=== PATIENT | female | born 1985 | race Two or more races ===

== ENCOUNTER 2024-05-21 20:59 | Emergency (ER) | payer SELFPAY ==
[~2024-05-21] VITALS: Ht 170.2 cm; Wt 73.1 kg
[2024-05-21 21:37] VITALS: PULSE 82; RESP 16; O2SAT 94
[2024-05-21 21:40] LABS: Basophils # (auto) 0 10 ^3/uL (0-0.2); Basophils % (auto) 0.5 % (0.0-2.0); Eosinophils # (auto) 0.1 10 ^3/uL (0-0.8); Eosinophils % (auto) 1.4 % (0.0-7.0); Hematocrit 41.8 % (36.0-46.0); Hemoglobin 14.1 g/dL (12.2-16.2); Lymphocytes # (auto) 2.2 10 ^3/uL (0.4-5.4); Lymphocytes % (auto) 35.8 % (10.0-50.0); Mean Corpuscular Hemoglobin 29.2 pg (28.0-32.0); Mean Corpuscular Hgb Conc. 33.7 g/dL (32.0-36.0); Mean Corpuscular Volume 86.5 fL (80.0-100.0); Monocytes # (auto) 0.4 10 ^3/uL (0-1.3); Monocytes % (auto) 6.4 % (0.0-12.0); Neutrophils # (auto) 3.4 10 ^3/uL (1.6-8.6); Neutrophils % (auto) 55.9 % (37.0-80.0); Platelet Count (auto) 327 10^3/uL (140-450); Red Blood Cells 4.83 10^6/uL (4.0-5.20); White Blood Cell 6.1 10^3/uL (4.4-10.8)
[2024-05-21 21:42] LABS: Chloride 101 mmol/L (98-107); Potassium 4.1 mmol/L (3.5-5.1); Sodium 130 mmol/L (136-145)
[2024-05-21 21:43] LABS: Anion Gap 8 (5-15); Calcium 9.7 mg/dL (8.7-10.4); Carbon Dioxide 21 mmol/L (20-31)
[2024-05-21 21:48] LABS: BUN/Creatinine Ratio 15.1 (10.0-20.0); Blood Urea Nitrogen 13 mg/dL (9-23)
[2024-05-21 21:53] LABS: Glucose 517 mg/dL (74-106)
[2024-05-21 22:00] VITALS: TEMP 98.4
[2024-05-21] MEDS: SODIUM CHLORIDE 0.9% 1,000 ML IV ONE (22:06)
[2024-05-21] MEDS: InsuLIN REG 1unit/0.01ml Soln (100units/ml) IV ONE (22:06)
[2024-05-21 22:34] LABS: Urine Bacteria None Seen /hpf (None Seen)
[2024-05-21 22:55] LABS: Urine Blood Negative /uL (Negative); Urine Budding Yeast OCCASIONAL /hpf (None Seen); Urine Clarity Clear (Clear); Urine Color Light-Yellow (Yellow); Urine Hyaline Cast FEW /lpf (0 - 2); Urine Protein, UAD Negative (Negative); Urine Specific Gravity 1.039 (1.001-1.035); Urine Urobilinogen Normal (Negative); Urine WBC 2 /hpf (0 - 5)
[2024-05-21] MEDS: FLUCONAZOLE 100 MG TAB PO ONE (23:15)
[2024-05-22] VITALS: BP 120/72; PULSE 76; RESP 22; O2SAT 96
== END 2024-05-22 00:56 | disposition home or self-care (01) ==
LOC: ER 20:59
DX: E11.65 Type 2 diabetes mellitus with hyperglycemia (principal); J45.909 Unspecified asthma, uncomplicated; Z98.890 Other specified postprocedural states
CPT/HCPCS: 36415; 80048; 81001; 85025; 96361; 96374; 99283; J1815; J7030

== ENCOUNTER 2024-06-18 16:45 | Emergency (ER) | payer SELFPAY ==
[~2024-06-18] VITALS: Ht 170.2 cm; Wt 73.3 kg
[2024-06-18 17:03] VITALS: BP 151/89; PULSE 80; RESP 16; O2SAT 97
[2024-06-18] MEDS ORDERED: ONDANSETRON HCL 4 MG/2 ML VIAL IV ONE (17:15)
[2024-06-18] MEDS ORDERED: InsuLIN REG 1unit/0.01ml Soln (100units/ml) IV ONE (17:15)
[2024-06-18] MEDS ORDERED: SODIUM CHLORIDE 0.9% 1,000 ML IV ONE ×2 (17:15→19:15)
[2024-06-18 17:25] LABS: Base Excess -0.4 mmol/L (-2.0-3.0)
--- NOTE | 2024-06-18 17:27 | ED.PDOC ---
GI ASSESSMENT HPI Comments DALILA Arreguin: Poor Historian. 39-year-old female with a history of diabetes presents to the emergency department for nonspecific left side abdominal pain with nausea and vomiting nonbilious nonbloody. Patient states she has been taking metformin and is supposed to be started on insulin but she has not picked it up yet. She checked her blood sugar at home today which was greater than 500. She decided to come here for evaluation. Temp: 98.5 F Heart rate: 80 RR: 16 BP: 151/89 02 sat: 97 % on room air PMH: DM 1, HLD PSH: CIARAN MAYER Social history: ENDORSES tobacco use, ENDORSES ETOH use, DENIES drug use Meds: UNKNOWN Allergies: DENIES REVIEW OF SYSTEMS: CONSTITUTIONAL: Denies acute: fever, diaphoresis, chills, HEAD: Denies acute: headache, photophobia Eyes: Denies acute: Double vision, vision loss, eye pain, eye discharge. EARS: Denies acute: tinnitus, hearing loss, ear discharge, ear pain, THROAT: Denies acute: sore throat, swelling, difficulty swallowing , pain with swallowing, change in voice. NECK: Denies acute: neck pain, neck swelling, stiff neck. HEART: Denies acute : chest pain, palpitations, LUNGS: Denies acute: SOB, wheezing, cough, hemoptysis ABDOMEN: Denies acute: diarrhea, melena , hematemesis, hematochezia SKIN: Denies acute: rash, redness, lesions, itchiness. EXTREMITIES: Denies acute: calf pain, numbness, tingling, weakness, denies pain in extremity. Denies acute: Low back pain. Neuro: Denies acute: focal neurological deficit, motor or sensory focal neurological deficit, tremors, seizure like activity, confusion, dizziness, change in mental status, loss of bowel or bladder function, cauda equina like symptoms. : Denies acute: dysuria, hematuria, flank pain, increase in urinary frequency. PSYCH: Denies acute: hallucination, suicidal ideation, homicidal ideation. FEMALE: Denies acute: abnormal vaginal bleeding, foul odor, unusual discharge. PHYSICAL EXAM: General: [id number] acute distress, awake and alert. Head: normocephalic, atraumatic. Neck: supple, trachea is midline, no swelling. Throat: Normal phonation. Eyes:, no erythema, no purulent discharge, no proptosis, no icterus. Heart: regular rate, regular rhythm, no significant murmur appreciated. Lungs: no apparent respiratory distress, Able to speak in full sentences. No wheezing, no rhonchi, no crackles. No stridors Clear to auscultation bilaterally. Abdomen: Suprapubic and left lower quadrant tender to palpation, non distended, soft, no guarding, no rebound, + bowel sounds. Neuro: Awake, Alert, oriented to name, self, situation, follows commands GCS=15. Speech is normal. Skin: no petechia, no purpura, no cyanosis, non-pale, not jaundice. Lower extremities: --no - Pitting edema no deformity, no focal swelling, no calf TTP. Makes eye contact. moves all four extremities. Face: no apparent facial droop. Ambulating in the ED independently. Chief Complaint: Hyperglycemia Time Seen by MD: 16:52 Primary Care Provider: OUT OF AREA Reviewed Notes: Nurses Notes, Medications, Allergies Allergies: Coded Allergies: NO KNOWN ALLERGIES (Unverified , 10/03/12) Home Meds No Active Prescriptions or Reported Meds Information Source: Patient Mode of Arrival: Ambulatory Brought in by: SELF Past Medical History PAST MEDICAL HISTORY: Asthma, DM, HTN COMPUTER TRAINING SPECIALIST History: No Pertinent COMPUTER TRAINING SPECIALIST History Family History Family History (Other): Fibromyalgia Social History Smoker: Other Alcohol: Occasionally Drugs: Denies Drug Use Lives In: Home Was a procedure done? Was a procedure done?: No GI differential Dx Differential Diagnosis: Other (DDX include Diverticulitis, colitis, gastroenteritis, acute abdomen, SBO, enteritis, constipation, volvulus, appendicitis, Gallbladder disease, choledocolithiasis, ascending cholangitis, pancreatitis, intraAbdominal mass/neoplasm, hepatitis, UTI, pylonephritis, kidney stone, aneurysm, dissection, Inflammatory bowel disease, gastroparesis, ischemic bowel, ovarian torsion, ovarian cyst/mass, tubo-ovarian abscess, , ectopic , PID, STD.) X-Ray, Labs, Meds, VS Vital Signs Date Time Temp Pulse Resp B/P (MAP) Pulse Ox O2 Delivery O2 Flow Rate FiO2 06/18/24 17:03 98.5 80 16 151/89 (109) 97 Lab Test 06/18/24 18:23 06/18/24 17:38 06/18/24 17:21 Range/Units Urine Color Colorless Yellow Urine Clarity Clear Clear Urine pH 5.5 5.0-9.0 Urine Specific [place] 1.040 H 1.001-1.035 Urine Protein Negative Negative Urine Ketones Negative Negative Urine Blood Negative Negative /uL Urine Nitrite Negative Negative Urine Bilirubin Negative Negative Urine Urobilinogen Normal Negative mg/dL Urine Leukocyte Esterase 2+ Negative /uL Urine RBC 18 0 - 4 /hpf Urine WBC 18 0 - 5 /hpf Urine Squamous Epithelial Cells Few <5 /hpf Urine Bacteria None seen None Seen /hpf Urine Glucose 4+ H Normal mg/dL Urine Opiates Screen Neg NEGATIVE Urine Fentanyl Screen Neg NEGATIVE Urine Barbiturates Screen Neg NEGATIVE Urine Phencyclidine Screen Neg NEGATIVE Urine Amphetamines Screen Neg NEGATIVE Urine Benzodiazepines Screen Neg NEGATIVE Urine Cocaine Screen Neg NEGATIVE Urine Cannabinoids Screen Neg NEGATIVE White Blood Count 6.0 4.4-10.8 10^3/uL Red Blood Count 4.77 4.0-5.20 10^6/uL Hemoglobin 14.4 12.2-16.2 g/dL Hematocrit 41.1 36.0-46.0 % Mean Corpuscular Volume 86.1 80.0-100.0 fL Mean Corpuscular Hemoglobin 30.3 28.0-32.0 pg Mean Corpuscular Hemoglobin Concent 35.2 32.0-36.0 g/dL Red Cell Distribution Width 13.2 11.8-14.3 % Platelet Count 305 140-450 10^3/uL Mean Platelet Volume 7.3 6.9-10.8 fL Neutrophils (%) (Auto) 64.6 37.0-80.0 % Lymphocytes (%) (Auto) 29.2 10.0-50.0 % Monocytes (%) (Auto) 4.6 0.0-12.0 % Eosinophils (%) (Auto) 1.2 0.0-7.0 % Basophils (%) (Auto) 0.4 0.0-2.0 % Neutrophils # (Auto) 3.9 1.6-8.6 10 ^3/uL Lymphocytes # (Auto) 1.7 0.4-5.4 10 ^3/uL Monocytes # (Auto) 0.3 0-1.3 10 ^3/uL Eosinophils # (Auto) 0.1 0-0.8 10 ^3/uL Basophils # (Auto) 0 0-0.2 10 ^3/uL Nucleated Red Blood Cells 0.5 % D-Dimer, Quantitative < 0.19 0.0-0.49 mg/L FEU Sodium Level 133 L 136-145 mmol/L Potassium Level 4.2 3.5-5.1 mmol/L Chloride Level 99 98-107 mmol/L Carbon Dioxide Level 27 20-31 mmol/L Anion Gap 7 5-15 Blood Urea Nitrogen 13 9-23 mg/dL Creatinine 0.81 0.550-1.02 mg/dL Glomerular Filtration Rate Calc 94 >90 mL/min BUN/Creatinine Ratio 16.0 10.0-20.0 Serum Glucose 418 *H 74-106 mg/dL Lactic Acid Level 1.5 0.4-2.0 mmol/L Calcium Level 9.5 8.7-10.4 mg/dL Magnesium Level 1.9 1.6-2.6 mg/dL Total Bilirubin 0.3 0.2-1.0 mg/dL Aspartate Amino Transferase (AST) < 8 L 13-40 U/L Alanine Aminotransferase (ALT) 23 7-40 U/L Alkaline Phosphatase 90 46-116 U/L Troponin I High Sensitivity < 3 L </=34 ng/L Total Protein 6.8 5.7-8.2 g/dL Albumin 4.5 3.2-4.8 g/dL Lipase 48 12-53 U/L Beta-Hydroxybutyric Acid 0.163 < 0.4 mmol/L Beta HCG, Quantitative 0.0 L 1.5-4.2 mIU/mL Blood Gas Specimen Type Arterial Blood Gas Sample Site Right radial Blood Gas Patient Temperature 37.0 Arterial Blood Date Drawn [id number] Arterial Blood pH 7.408 7.350-7.450 Arterial Blood Partial Pressure CO2 39.0 32.0-45.0 mmHg Arterial Blood Partial Pressure O2 72.0 L 83.0-108.0 mmHg Arterial Blood HCO3 24.1 21.0-28.0 mmol/L Arterial Blood Oxygen Saturation 95.0 94.0-98.0 % Arterial Blood Base Excess -0.4 -2.0-3.0 mmol/L Arterial Blood Oxyhemoglobin 93.7 L 94.0-98.0 % Arterial Blood Carboxyhemoglobin 0.8 0.5-1.5 % Arterial Blood Methemoglobin 0.6 0.0-1.5 % Man Test Positive Blood Gas Total Hemoglobin 14.20 12.0-16.0 g/dL Blood Gas Liter Flow 0.00 Blood Gas Modality Room air FiO2 % 21.[address] [address] Ph: [phone] DIAGNOSTIC IMAGING Diagnostic Imaging Report : [id number] Signed PATIENT: MERLIN MIX ACCT: [id number] UNIT: [id number] : 1985 LOC: ER ROOM / BED: / AGE / SEX: 39 / F ADM STATUS: REG ER SERVICE 08 ORDERING PHYSICIAN: SALEEM LAZCANO DO PROCEDURE(s): CXRP - CHEST PORTABLE REASON: L abd pain ORDER NUMBER(s): [id number], ACCESSION NUMBER(s): [id number] EXAM: XY CHEST PORTABLE CLINICAL HISTORY: L abd pain TECHNIQUE: Single AP view of the chest WID: COMPARISON: None FINDINGS: Lines and tubes: None Chest: The heart size and pulmonary vasculature is within normal limits. No pleural effusion, pneumothorax, or consolidation. The osseous structures are grossly intact. IMPRESSION: No acute cardiopulmonary abnormality. ATED BY: RADHA SALTER MD DICTATED DATE/TIME: 06/18/242010 SIGNED BY: RADHA SALTER MD SIGNED DATE/TIME: 06/18/242010 CC: [address] [id number] Ph: [phone] DIAGNOSTIC IMAGING Diagnostic Imaging Report : [id number] Signed PATIENT: MERLIN IMX ACCT: [id number] UNIT: [id number] : 1985 LOC: ER ROOM / BED: / AGE / SEX: 39 / F ADM STATUS: REG ER SERVICE 08 ORDERING PHYSICIAN: SALEEM LAZCANO DO PROCEDURE(s): ABPL - CT AB PEL WO CON-NO ORAL OR IV REASON: L abd pain ORDER NUMBER(s): [id number], ACCESSION NUMBER(s): [id number] Exam: CT CT AB PEL WO CON-NO ORAL OR IV History: L abd pain Comparison Study: None available at time of dictation. TECHNIQUE: Multidetector CT of the abdomen was performed from lung bases to pubic symphysis. Imaging was performed without IV contrast. Axial, coronal and sagittal multiplanar reformats were obtained from the axial data set by the technologist. Radiation Dose Information: CT Dose: CTDI volume is 8.82 mGy. Dose-length product is 489.88 mGy*cm FINDINGS: Evaluation of solid organs is limited due to lack of intravenous contrast use. Findings: Lung Bases: No acute or significant lung base finding. Normal heart size. No pleural or pericardial effusion. Liver: The liver is normal in size. No focal lesions. Gallbladder and Biliary Tree: Unremarkable Spleen: Unremarkable Pancreas: The pancreas is grossly normal in appearance. Adrenal Glands: Unremarkable Kidneys: Kidneys are grossly normal without calculi or hydronephrosis. Bladder: Grossly unremarkable for degree of distention. Bowel: The stomach is grossly normal in appearance. Small bowel and colon are normal in caliber and distribution. Stool throughout the The appendix is not visualized; however, no secondary findings of acute appendicitis identified. Ascites: Absent Lymphadenopathy: No mesenteric, retroperitoneal or periportal lymphadenopathy. Abdominal Wall and Mesentery: Unremarkable. Vasculature: The visualized abdominal aorta is normal in size and caliber. Evaluation of abdominal and pelvic vessels is limited due to lack of intravenous contrast. Pelvic Organs: Unremarkable Musculoskeletal: No aggressive focal bony lesions, acute fractures or dislocation. Soft tissues: Unremarkable IMPRESSION: 1. Gallbladder is contracted. No calcified gallstones are seen. 2. There is no nephrolithiasis or hydronephrosis. 3. There are no CT findings to suggest bowel obstruction however there is a large stool burden throughout the colon. 4. There is no free air or free fluid. Radiation optimization: All CT scans at this facility use at least one of these dose optimization techniques: automated exposure control mA and/or kV adjustment per patient size (includes targeted exams where dose is matched to clinical indication) or iterative reconstruction. ATED BY: CT MARTINEZ Jr., DO DICTATED DATE/TIME: 06/18/242013 SIGNED BY: CT MARTINEZ Jr., SIGNED DATE/TIME: 06/18/242013 CC: Time of 1ST Reevaluation: 23:00 Reevaluation 1ST: N/A Patient Education/Counseling: Diagnosis, Treatment Family Education/Counseling: No Family Present Comments Patient presented with the above HPI.--hyperglycemia and abdominal pain----workup was initiated. patient was found with the above mentioned diagnosis. Patient was given: Fluids and insulin and Zofran Patient ED course and VS have been stabilized. Patient has been reassessed in the ED and remained in a stable condition. Patient has been observed in the ED adequate length of time to insure improvement/stability. patient was admitted to the medicine team for further evaluation and treatment of their presentation. However I was notified that the patient eloped. All the reports of any imaging studies that were ordered by myself were reviewed by myself. Departure 1 Departure Time of Disposition: 19:46 Impression: Primary Impression: Hyperglycemia Additional Impressions: Hypoxemia Abdominal pain Eloped from emergency department Disposition: 07 LEFT AWOL/ELOPED Admit to: Tele Condition: Guarded e-Prescriptions No Active Prescriptions or Reported Meds Discharged With: Self Critical Care Note Critical Care Time?: No I personally scribed for SALEEM LAZCANO DO ([email or web address]) on 06/18/24 at 17:27. Electronically submitted by Sandrine Aparicio ([employer]). I personally scribed for SALEEM LAZCANO DO ([email or web address]) on 06/18/24 at 17:55. Electronically submitted by Sandrine Aparicio ([employer]). I personally scribed for SALEEM LAZCANO DO ([email or web address]) on 06/18/24 at 21:05. Electronically submitted by Sandrine Aparicio ([employer]). SALEEM LAZCANO DO Jun 18, 2024 17:27
[2024-06-18 18:04] LABS: Basophils # (auto) 0 10 ^3/uL (0-0.2); Basophils % (auto) 0.4 % (0.0-2.0); Eosinophils # (auto) 0.1 10 ^3/uL (0-0.8); Eosinophils % (auto) 1.2 % (0.0-7.0); Hematocrit 41.1 % (36.0-46.0); Hemoglobin 14.4 g/dL (12.2-16.2); Lymphocytes # (auto) 1.7 10 ^3/uL (0.4-5.4); Lymphocytes % (auto) 29.2 % (10.0-50.0); Mean Corpuscular Hemoglobin 30.3 pg (28.0-32.0); Mean Corpuscular Hgb Conc. 35.2 g/dL (32.0-36.0); Mean Corpuscular Volume 86.1 fL (80.0-100.0); Monocytes # (auto) 0.3 10 ^3/uL (0-1.3); Monocytes % (auto) 4.6 % (0.0-12.0); Neutrophils # (auto) 3.9 10 ^3/uL (1.6-8.6); Neutrophils % (auto) 64.6 % (37.0-80.0); Nucleated Red Blood Cells % 0.5 %; Platelet Count (auto) 305 10^3/uL (140-450); Red Blood Cells 4.77 10^6/uL (4.0-5.20); Red Cell Distribution Width 13.2 % (11.8-14.3)
[2024-06-18 18:25] LABS: Urine Bacteria None Seen /hpf (None Seen)
[2024-06-18 18:26] LABS: Alanine Aminotransferase 23 U/L (7-40); Albumin 4.5 g/dL (3.2-4.8); Alkaline Phosphatase 90 U/L (46-116); Anion Gap 7 (5-15); Aspartate Aminotransferase < 8 U/L (13-40); Bilirubin, Total 0.3 mg/dL (0.2-1.0); Blood Urea Nitrogen 13 mg/dL (9-23); Calcium 9.5 mg/dL (8.7-10.4); Carbon Dioxide 27 mmol/L (20-31); Chloride 99 mmol/L (98-107); Lipase 48 U/L (12-53); Magnesium 1.9 mg/dL (1.6-2.6); Potassium 4.2 mmol/L (3.5-5.1); Sodium 133 mmol/L (136-145); Total Protein 6.8 g/dL (5.7-8.2)
[2024-06-18 18:36] LABS: Glucose 418 mg/dL (74-106)
[2024-06-18 18:45] LABS: Urine Blood Negative /uL (Negative); Urine Clarity Clear (Clear); Urine Color Colorless (Yellow); Urine Protein, UAD Negative (Negative); Urine Urobilinogen Normal (Negative); Urine WBC 18 /hpf (0 - 5); Urine pH 5.5 (5.0-9.0)
[2024-06-18 18:47] LABS: Amphetamine Screen, Urine Neg (NEGATIVE); Barbiturate Scree,Urine Neg (NEGATIVE); Benzodiazephine Screen, Urine Neg (NEGATIVE); Cocaine Screen, Urine Neg (NEGATIVE); Opiate Scree,Urine Neg (NEGATIVE)
[2024-06-18 18:48] LABS: Cannabinoid Screen, Urine Neg (NEGATIVE); Phencyclidine Screen, Urine Neg (NEGATIVE)
--- NOTE | 2024-06-18 20:14 | DVH ---
EXAM: XY CHEST PORTABLE CLINICAL HISTORY: L abd pain TECHNIQUE: Single AP view of the chest WID: COMPARISON: None FINDINGS: Lines and tubes: None Chest: The heart size and pulmonary vasculature is within normal limits. No pleural effusion, pneumothorax, or consolidation. The osseous structures are grossly intact. IMPRESSION: No acute cardiopulmonary abnormality.
--- NOTE | 2024-06-18 20:17 | DVH ---
Exam: CT CT AB PEL WO CON-NO ORAL OR IV History: L abd pain Comparison Study: None available at time of dictation. TECHNIQUE: Multidetector CT of the abdomen was performed from lung bases to pubic symphysis. Imaging was performed without IV contrast. Axial, coronal and sagittal multiplanar reformats were obtained fr om the axial data set by the technologist. Radiation Dose Information: CT Dose: CTDI volume is 8.82 mGy. Dose-length product is 489.88 mGy*cm FINDINGS: Evaluation of solid organs is limited due to lack of intravenous contrast use. Findings: Lung Bases: No acute or significant lung base finding. Normal heart size. No pleural or pericardial effusion. Liver: The liver is normal in size. No focal lesions. Gallbladder and Biliary Tree: Unremarkable Spleen: Unremarkable Pancreas: The pancreas is grossly normal in appearance. Adrenal Glands: Unremarkable Kidneys: Kidneys are grossly normal without calculi or hydronephrosis. Bladder: Grossly unremarkable for degree of distention. Bowel: The stomach is grossly normal in appearance. Small bowel and colon are normal in caliber and d istribution. Stool throughout the The appendix is not visualized; however, no secondary findings of acute appendicitis identified. Ascites: Absent Lymphadenopathy: No mesenteric, retroperitoneal or periportal lymphadenopathy. Abdominal Wall and Mesentery: Unremarkable. Vasculature: The visualized abdominal aorta is normal in size and caliber. Evaluation of abdominal a nd pelvic vessels is limited due to lack of intravenous contrast. Pelvic Organs: Unremarkable Musculoskeletal: No aggressive focal bony lesions, acute fractures or dislocation. Soft tissues: Unremarkable IMPRESSION: 1. Gallbladder is contracted. No calcified gallstones are seen. 2. There is no nephrolithiasis or hydronephrosis. 3. There are no CT findings to suggest bowel obstruction however there is a large stool burden throug hout the colon. 4. There is no free air or free fluid. Radiation optimization: All CT scans at this facility use at least one of these dose optimization travis hniques: automated exposure control mA and/or kV adjustment per patient size (includes targeted exam s where dose is matched to clinical indication) or iterative reconstruction.
== END 2024-06-18 21:11 | disposition left against medical advice (07) ==
LOC: ER 16:45
DX: E11.65 Type 2 diabetes mellitus with hyperglycemia (principal); R10.2 Pelvic and perineal pain; R09.02 Hypoxemia; R10.9 Unspecified abdominal pain; J45.909 Unspecified asthma, uncomplicated; I10 Essential (primary) hypertension; E78.5 Hyperlipidemia, unspecified; F17.200 Nicotine dependence, unspecified, uncomplicated; Z79.899 Other long term (current) drug therapy
CPT/HCPCS: 36415; 36600; 71045; 74176; 80053; 80307; 81001; 82010; 82805; 83605; 83690; 83735; 84484; 84702; 85025; 85379

== ENCOUNTER 2024-10-14 02:20 | Emergency (ER) | payer MEDICAID ==
[~2024-10-14] VITALS: Ht 170.2 cm; Wt 73.0 kg
[2024-10-14] MEDS: SODIUM CHLORIDE 0.9% 1,000 ML IV ONE ×2 (03:09→05:23)
[2024-10-14] MEDS: ASPirin 81 mg TAB PO ONE (03:10)
[2024-10-14] MEDS: hydrALAZINE HCL 20 MG/ML VL IV ONE (03:10)
[2024-10-14 03:11] LABS: Basophils # (auto) 0 10 ^3/uL (0-0.2); Basophils % (auto) 0.4 % (0.0-2.0); Eosinophils # (auto) 0 10 ^3/uL (0-0.8); Eosinophils % (auto) 0.5 % (0.0-7.0); Hematocrit 39.1 % (36.0-46.0); Hemoglobin 13.6 g/dL (12.2-16.2); Lymphocytes # (auto) 1.6 10 ^3/uL (0.4-5.4); Lymphocytes % (auto) 35.3 % (10.0-50.0); Mean Corpuscular Hemoglobin 29.6 pg (28.0-32.0); Mean Corpuscular Hgb Conc. 34.7 g/dL (32.0-36.0); Mean Corpuscular Volume 85.4 fL (80.0-100.0); Monocytes # (auto) 0.5 10 ^3/uL (0-1.3); Monocytes % (auto) 10.2 % (0.0-12.0); Neutrophils # (auto) 2.5 10 ^3/uL (1.6-8.6); Neutrophils % (auto) 53.6 % (37.0-80.0); Nucleated Red Blood Cells % 0.2 %; Platelet Count (auto) 233 10^3/uL (140-450); Red Blood Cells 4.58 10^6/uL (4.0-5.20); Red Cell Distribution Width 13.5 % (11.8-14.3); White Blood Cell 4.6 10^3/uL (4.4-10.8)
[2024-10-14 03:12] LABS: Base Excess -1.1 mmol/L (-2.0-3.0)
[2024-10-14 03:21] LABS: Albumin 4.6 g/dL (3.2-4.8); Alkaline Phosphatase 82 U/L (46-116); Anion Gap 10 (5-15); BUN/Creatinine Ratio 10.9 (10.0-20.0); Blood Urea Nitrogen 10 mg/dL (9-23); Calcium 9.6 mg/dL (8.7-10.4); Carbon Dioxide 25 mmol/L (20-31); Magnesium 1.8 mg/dL (1.6-2.6); Total Protein 7.1 g/dL (5.7-8.2)
--- NOTE | 2024-10-14 03:28 | ECG ---
[facility] Test Date: 2024-10-14 Test Time: 03:27:03 Pat Name: MERLIN MIX Department: ED Room: Gender: F Concrete Floater: ADOLFO : 1985 Requested By: EMERGENCY EMERGENCY Order Number: [id number] Reading MD: Measurements Intervals [place] Rate: 94 P: 50 IN: 129 QRS: 53 QRSD: 85 T: 40 QT: 358 QTc: 448 Interpretive Statements Sinus rhythm Probable anteroseptal infarct, old Please click the below link to view image of tracing.
[2024-10-14 03:42] LABS: Alanine Aminotransferase 71 U/L (7-40); Aspartate Aminotransferase 43 U/L (13-40); Bilirubin, Total 0.3 mg/dL (0.2-1.0); Chloride 98 mmol/L (98-107); Glucose 430 mg/dL (74-106); Sodium 133 mmol/L (136-145)
[2024-10-14 03:45] LABS: Urine Bacteria None Seen /hpf (None Seen)
[2024-10-14 04:04] VITALS: PULSE 104; RESP 14; O2SAT 98
[2024-10-14] MEDS: ACETAMINOPHEN 325 MG TAB PO ONE (04:12)
[2024-10-14] MEDS: KETOROLAC TROMETH 30 MG/ML 1ML VIAL IV ONE (04:12)
[2024-10-14 04:30] LABS: Urine Blood Negative /uL (Negative); Urine Clarity Clear (Clear); Urine Color Colorless (Yellow); Urine Protein, UAD Negative (Negative); Urine Squamous Epithelial Cell FEW /hpf (<5); Urine Urobilinogen Normal (Negative); Urine WBC 7 /HPF (0-5); Urine pH 5.5 (5.0-9.0)
--- NOTE | 2024-10-14 04:49 | ED.PDOC ---
History of Present Illness HPI Comments [id number]-female, with a history of asthma, DMI, fibromyalgia, HLD, HTN, and polysubstance use, presents with c/o hyperglycemia, with associated generalized weakness, dizziness, headache, chest pain, nausea, and diarrhea, today. Patient endorses onset of symptoms, this morning, after dealing with a fever that has been ongoing for the past 2x days. She reports a chronological blood glucose measurements of 428, 290, 385, and 497 at home after multiple rechecks at home prior to ED arrival, with endorsement of water consumption use in attempt to counter rising blood glucose levels to minimal effect. Patient comments on daily insulin-pen use. She describes pain as tight in quality. Patient denies any shortness of breath, abdominal pain, vomiting, chills, or other associated symptoms or modifiers at this time. Chief Complaint: Palpitations Time Seen by MD: 02:40 Primary Care Provider: OUT OF AREA Reviewed Notes: Nurses Notes, Medications, Allergies Allergies: Coded Allergies: NO KNOWN ALLERGIES (Unverified , 10/03/12) Home Meds No Active Prescriptions or Reported Meds Information Source: Patient Mode of Arrival: Wheelchair Severity: Moderate Timing: Hours Duration: Since onset Prehospital treatment: None Review of Systems: REVIEW OF SYSTEMS: Fever, no chills, or fatigue HEENT: No sore throat, no earache, no congestion, no neck pain. Cardiac: Chest pain. No palpitations. Lungs: No shortness of breath, no cough. GI: Nausea and diarrhea, no vomiting, no constipation, no abdominal pain : No dysuria, frequency, or urgency. No hematuria. Musculoskeletal: No joint pain , no joint swelling, no extremity edema. Skin: No rash, no itching. Neuro: Headache, dizziness, and weakness Vital Signs Vital Signs Date Time Temp Pulse Resp B/P (MAP) Pulse Ox O2 Delivery O2 Flow Rate FiO2 10/14/24 05:12 99.3 10/14/24 04:49 94 10/14/24 04:04 14 98 Room Air* 0 21 10/14/24 03:59 143/102 (116) Physical Exam General: Awake, alert and oriented. No acute distress. Skin: Skin in warm, dry and intact. Appropriate color for ethnicity. HEENT: The head is normocephalic and atraumatic. Conjunctivae are clear without exudates or hemorrhage. Sclera is non-icteric. EOM are intact. No signs of nystagmus. Eyelids are normal in appearance without swelling or lesions. Oral mucosa is pink and moist Neck: The neck is supple with normal range of motion. No JVD. Cardiac: Heart rate and rhythm are normal. No murmurs, gallops, or rubs are auscultated. Respiratory: No signs of respiratory distress. Lung sounds are clear in all lobes bilaterally without rales, ronchi, or wheezes. Abdominal: Abdomen is soft, non-tender without distention. Bowel sounds are present and normoactive in all four quadrants. Extremities: Upper and lower extremities are atraumatic in appearance without deformity or edema. Neurological: The patient is awake, alert and oriented to person, place, and time with normal speech. Speech is clear. There is no facial asymmetry. Psychiatric: Appropriate mood and affect. Good judgement and insight. No visual or auditory hallucinations. Past Medical History PAST MEDICAL HISTORY: Asthma, DM (Type 1), High Lipids, HTN Past Medical History (Other): Fibromyalgia Surgical History (Other): Tummy tuck USER ACCEPTANCE TESTER History: No Pertinent USER ACCEPTANCE TESTER History Family History Family History (Other): Fibromyalgia Social History Smoker: Cigarettes Alcohol: Occasionally Drugs: Denies Drug Use Lives In: Home Was a procedure done? Was a procedure done?: No EKG EKG #1: Pulse Rate (adult): 100 Cardiac Rhythm: NSR, PAC's Block: None Hypertrophy: None ST: Normal EKG #2: Pulse Rate (adult): 94 [place]: Normal Cardiac Rhythm: NSR Block: None Hypertrophy: None ST: Normal Differential Dx Considerations may include: hyperglycemia, DKA, acute ischemic coronary syndrome, aortic dissection, cardiac tamponade, mediastinitis, pulmonary embolus, pneumothorax, tension pneumothorax, esophageal rupture, coronary artery vasospasm, myocarditis, pericarditis, pneumonia, pulmonary edema, esophageal tear, pancreatitis, aortic stenosis, dilated cardiomyopathy, hypertrophic cardiomyopathy, mitral valve prolapse, malignancy, pleuritis, pneumomediastinum, primary pulmonary hypertension, cholecystitis, esophageal spasm, esophagus, gastritis, GERD, peptic ulcer disease, costochondritis, fibromyalgia, rib fracture, herpes zoster, radicular syndromes, thoracic outlet syndrome, somatization X-Ray, Labs, Meds, VS Vital Signs Date Time Temp Pulse Resp B/P (MAP) Pulse Ox O2 Delivery O2 Flow Rate FiO2 10/14/24 05:12 99.3 10/14/24 04:49 94 10/14/24 04:12 101.1 10/14/24 04:04 104 14 98 Room Air* 0 21 10/14/24 03:59 100.1 102 24 143/102 (116) 98 100.1 10/14/24 03:27 94 10/14/24 03:10 155/110 10/14/24 02:41 99.9 105 20 155/110 (125) 97 10/14/24 02:38 100 Lab Test 10/14/24 05:21 10/14/24 04:17 10/14/24 03:18 10/14/24 03:15 Range/Units POC Glucose 337 H 70-106 mg/dl Influenza Type A Antigen Negative Negative Influenza Type B Antigen Positive Negative SARS-CoV-2 Antigen (Rapid) Negative NEGATIVE Urine Color Colorless Yellow Urine Clarity Clear Clear Urine pH 5.5 5.0-9.0 Urine Specific [place] 1.030 1.001-1.035 Urine Protein Negative Negative Urine Ketones Negative Negative Urine Blood Negative Negative /uL Urine Nitrite Negative Negative Urine Bilirubin Negative Negative Urine Urobilinogen Normal Negative mg/dL Urine Leukocyte Esterase Negative Negative /uL Urine RBC 4 0 - 4 /hpf Urine Microscopic WBC 7 H 0-5 /HPF Urine Squamous Epithelial Cells Few <5 /hpf Urine Bacteria None seen None Seen /hpf Urine Glucose 4+ H Normal mg/dL Urine Test Negative Negative Magnesium Level Pending Troponin I High Sensitivity 3 L </=34 ng/L Lipase Pending Test 10/14/24 03:02 10/14/24 02:45 10/14/24 02:43 10/14/24 02:30 Range/Units Blood Gas Specimen Type Arterial Blood Gas Sample Site Right radial Blood Gas Patient Temperature 37.0 Arterial Blood Date Drawn [id number] Arterial Blood pH 7.441 7.350-7.450 Arterial Blood Partial Pressure CO2 33.4 32.0-45.0 mmHg Arterial Blood Partial Pressure O2 84.1 83.0-108.0 mmHg Arterial Blood HCO3 22.2 21.0-28.0 mmol/L Arterial Blood Oxygen Saturation 96.5 94.0-98.0 % Arterial Blood Base Excess -1.1 -2.0-3.0 mmol/L Arterial Blood Oxyhemoglobin 95.2 94.0-98.0 % Arterial Blood Carboxyhemoglobin 0.8 0.5-1.5 % Arterial Blood Methemoglobin 0.5 0.0-1.5 % Man Test Modified Blood Gas Total Hemoglobin 14.10 12.0-16.0 g/dL Blood Gas Modality Room air FiO2 % 21.0 POC Glucose 425 *H 412 *H 70-106 mg/dl White Blood Count 4.6 4.4-10.8 10^3/uL Red Blood Count 4.58 4.0-5.20 10^6/uL Hemoglobin 13.6 12.2-16.2 g/dL Hematocrit 39.1 36.0-46.0 % Mean Corpuscular Volume 85.4 80.0-100.0 fL Mean Corpuscular Hemoglobin 29.6 28.0-32.0 pg Mean Corpuscular Hemoglobin Concent 34.7 32.0-36.0 g/dL Red Cell Distribution Width 13.5 11.8-14.3 % Platelet Count 233 140-450 10^3/uL Mean Platelet Volume 7.5 6.9-10.8 fL Neutrophils (%) (Auto) 53.6 37.0-80.0 % Lymphocytes (%) (Auto) 35.3 10.0-50.0 % Monocytes (%) (Auto) 10.2 0.0-12.0 % Eosinophils (%) (Auto) 0.5 0.0-7.0 % Basophils (%) (Auto) 0.4 0.0-2.0 % Neutrophils # (Auto) 2.5 1.6-8.6 10 ^3/uL Lymphocytes # (Auto) 1.6 0.4-5.4 10 ^3/uL Monocytes # (Auto) 0.5 0-1.3 10 ^3/uL Eosinophils # (Auto) 0 0-0.8 10 ^3/uL Basophils # (Auto) 0 0-0.2 10 ^3/uL Nucleated Red Blood Cells 0.2 % Sodium Level 133 L 136-145 mmol/L Potassium Level 4.0 3.5-5.1 mmol/L Chloride Level 98 98-107 mmol/L Carbon Dioxide Level 25 20-31 mmol/L Anion Gap 10 5-15 Blood Urea Nitrogen 10 9-23 mg/dL Creatinine 0.92 0.550-1.02 mg/dL Glomerular Filtration Rate Calc 81 >90 mL/min BUN/Creatinine Ratio 10.9 10.0-20.0 Serum Glucose 430 *H 74-106 mg/dL Calcium Level 9.6 8.7-10.4 mg/dL Magnesium Level 1.8 1.6-2.6 mg/dL Total Bilirubin 0.3 0.2-1.0 mg/dL Aspartate Amino Transferase (AST) 43 H 13-40 U/L Alanine Aminotransferase (ALT) 71 H 7-40 U/L Alkaline Phosphatase 82 46-116 U/L Troponin I High Sensitivity 3 L </=34 ng/L B-Type Natriuretic Peptide 15.19 0-100 pg/mL Total Protein 7.1 5.7-8.2 g/dL Albumin 4.6 3.2-4.8 g/dL Beta-Hydroxybutyric Acid 0.155 < 0.4 mmol/L Current Medications Medications (Trade) Dose Ordered Sig/Tamy Route Start Time Stop Time Status Last Admin Sodium Chloride 1,000 ml @ 1,000 mls/hr Q1H ONCE IV 10/14/24 03:00 10/14/24 03:59 DC 10/14/24 03:09 Aspirin 324 mg ONCE ONCE PO 10/14/24 03:00 10/14/24 03:01 DC 10/14/24 03:10 Hydralazine HCl (Apresoline Injection) 10 mg ONCE ONCE IV 10/14/24 03:00 10/14/24 03:01 DC 10/14/24 03:10 Acetaminophen (Tylenol Tablet) 650 mg ONCE ONCE PO 10/14/24 04:15 10/14/24 04:16 DC 10/14/24 04:12 Ketorolac Tromethamine (Toradol Injection) 15 mg ONCE ONCE IV 10/14/24 04:15 10/14/24 04:16 DC 10/14/24 04:12 Insulin Human Regular (InsuLIN R) 7 units ONCE ONCE IV 10/14/24 05:15 10/14/24 05:16 DC 10/14/24 05:21 Potassium Bicarbonate (Klor-Con/Ef) 25 meq ONCE ONCE PO 10/14/24 05:15 10/14/24 05:16 DC 10/14/24 05:20 Sodium Chloride 1,000 ml @ 1,000 mls/hr Q1H ONCE IV 10/14/24 05:15 10/14/24 06:14 10/14/24 05:23 Oseltamivir Phosphate (Tamiflu 75MG Capsule) 75 mg ONCE ONCE PO 10/14/24 05:30 10/14/24 05:31 DC 10/14/24 05:26 Time of 1ST Reevaluation: 03:10 Reevaluation 1ST: Unchanged Patient Education/Counseling: Treatment, Need For Follow Up Family Education/Counseling: No Family Present Departure 1 Departure Time of Disposition: 05:53 Impression: Primary Impression: Hyperglycemia Additional Impression: Influenza B Disposition: 01 HOME / SELF CARE / HOMELESS Condition: Stable Additional Instructions: ED DISCHARGE INSTRUCTIONS Instructions: Please read all instructions provided in this packet carefully. Although you have been discharged from the Emergency Department, this does not mean that you have a "clean bill of health". No definitive diagnosis for your symptoms has been made today. It is possible that you are in the process of developing a serious illness. This is why you must return to the ED without fail if any new or worsening symptoms (especially if your symptoms include chest pain, trouble breathing, abdominal pain, fever, headache, confusion, trouble seeing, or trouble walking) It is also very important that you see a primary care doctor within the next 3-5 days to follow up. If you are unable to get an appointment, return to the ED for re-evaluation. Diabetes: Preventing High Blood Sugar Emergencies Introduction High blood sugar in diabetes occurs when the sugar (glucose) level in the blood rises above normal. It is also called hyperglycemia. When you have diabetes, high blood sugar may be caused by not getting enough insulin or missing your diabetes medicine. It may also be caused by eating too much food, skipping exercise, or being ill or stressed. Unlike low blood sugar, high blood sugar usually happens slowly over hours or days. Blood sugar levels above your target range may make you feel tired and thirsty. If your blood sugar keeps rising, your kidneys will make more urine and you can get dehydrated . Signs of dehydration include being thirstier than usual and having darker urine than usual. Without treatment, severe dehydration can be life-threatening. Over time, high blood sugar can damage the eyes, heart, kidneys, blood vessels, and nerves. Watch for symptoms of high blood sugar. Symptoms include feeling very tired or thirsty and urinating more often than usual. As long as you notice the symptoms, you will probably have time to treat high blood sugar so that you can prevent an emergency. Three things can help you prevent high blood sugar problems: Test your blood sugar often, especially if you are sick or not following your normal routine. Testing lets you see when your blood sugar is above your target range, even if you don't have symptoms. Then you can treat it early. Call your doctor if you often have high blood sugar or your blood sugar is often above your target range. Your medicine may need to be adjusted or changed. Drink extra water or drinks that don't have caffeine or sugar to prevent dehydration. How do you prevent high blood sugar emergencies? Treat infections early Infections that aren't treated (such as urinary tract infections, pneumonia, and skin infections) can raise your risk for a high blood sugar emergency. Be prepared Know the symptoms of high blood sugar. They include feeling very thirsty, feeling very tired, and urinating more than usual. Post a list of the symptoms in a place where you can see it often, such as on your refrigerator door. Add any symptoms you have noticed that may not be on the list. Make sure other people know the symptoms. Teach them what to do in case of an emergency. Check your blood sugar at home often, especially if you are sick or not following your normal routine. If you don't have a blood sugar meter, talk with your doctor about getting one. It is easy to miss the early symptoms, especially if you urinate more than usual but aren't more thirsty. Testing your blood sugar at home will help you know when it is high, even if you don't notice symptoms. Teach others (at work and at home) the symptoms of high blood sugar. Teach them to call 911 if you are unconscious or too sick to check your own blood sugar. Wear medical identification. Have a medical alert bracelet or other form of medical jewelry with you at all times. This is very important in case you are too sick or injured to speak for yourself. You can find medical identification at a drugstore or on the Internet. If you take insulin, test for ketones, especially if your blood sugar is high. Make a plan. Usually people who take insulin need to take extra fast-acting insulin when their blood sugar levels are high. Talk with your doctor about how much to take. This depends on your blood sugar level (sliding scale). Take your medicines as prescribed. Don't skip diabetes medicine or insulin doses without first talking with your doctor. Treat high blood sugar early The best way to prevent high blood sugar emergencies is to treat high blood sugar as soon as you have symptoms or when your blood sugar is well above your target range (for example, 200 mg/dL or higher). Follow your doctor's instructions for the steps for dealing with high blood sugar. Post the steps in a handy place at home and work. Make sure other people know what to do if you are unable to treat high blood sugar. Keep a record of high blood sugar levels. Write down your symptoms and how you treated them. And take the record with you when you see your doctor. Call your doctor. Let your doctor know if you have high blood sugar problems. Your diabetes medicine may need to be adjusted or changed. If you take insulin, your dose of insulin may need to be increased. Drink plenty of liquids If your blood sugar levels are above your target range, drink extra liquids. This helps replace the fluids lost through your urine. Water and sugar-free drinks are best. Avoid caffeinated drinks, alcohol, and soda pop. And avoid other drinks that have a lot of sugar, such as fruit juice. e-Prescriptions Oseltamivir Phosphate (Tamiflu) 75 Mg Cap 1 CAP PO BID for 5 Days, #9 CAP Prov: ALLEN HERNÁNDEZ MD 10/14/24 Comments 39-year-old female with abdominal pain and hyperglycemia. Patient is well- appearing, nontoxic. Patient's symptomsimproved during the ED observation with treat. Vital signs stable. No sign of DKA on lab results. Blood sugar improved with IV fluids and insulin. Other Lab results reviewed and are not urgently actionable. Patient is felt stable for discharge home. Patient advised to follow up with primary care provider promptly and return to the emergency department with any new, worsening or concerning symptoms. Extensive evaluation was performed in attempt to identify or rule out: (See differential diagnosis section) The following tests were ordered, and results were reviewed by me: (See diagnostic results section) The following test were independently interpreted by me: N/A I reviewed and agreed with the following test results read by other providers: N/A I reviewed the following notes from the pt's past medical encounters: June/2024 encounter for hyperglycemia Additional information was gathered from interviewing the following independent historians: N/A Discussion of management or test interpretation with external physician/other qualified health home health aide caregiver: N/A An acute or chronic illness that poses a threat to life or bodily function: Hyperglycemia Drug therapy requiring intensive monitoring for toxicity: IV insulin Parenteral controlled substances: N/A Decision regarding elective major surgery with identified patient or procedure risk factors: N/A Decision regarding emergency major surgery: N/A Decision not to resuscitate or to de-escalate care because of poor prognosis: N/A Diagnosis or treatment significantly limited by social determinants of health: N/A Decision regarding hospitalization or escalation of hospital level of care: Risks and benefits of admission for further treatment of patient's condition was considered however due to patient's stable condition patient will be discharged to follow up closely or return to care for worsening of condition or inability to follow up. Critical Care Note Critical Care Time?: No Stability Stability form required: No Heart Score Heart Score: Heart Score Response (Comments) Value History Slightly Suspicious 0 EKG Normal 0 Age <45 0 Risk Factors >3 or Hx ASHD 2 Total 2 I personally scribed for ALLEN HERNÁNDEZ MD ([email or web address]) on 10/14/24 at 04:49. Electronically submitted by Kehinde Craig ([email or web address]). ALLEN HERNÁNDEZ MD Oct 14, 2024 04:49
[2024-10-14 04:53] LABS: COVID19 ANTIGEN SOFIA FIA NEGATIVE (NEGATIVE); Rapid Influenza A Negative (Negative)
[2024-10-14 04:55] LABS: Rapid Influenza B Positive (Negative)
[2024-10-14] MEDS: POTASSIUM EFFERVESENT TAB 25 MEQ PO ONE (05:20)
[2024-10-14] MEDS: InsuLIN REG 1unit/0.01ml Soln (100units/ml) IV ONE (05:21)
[2024-10-14] MEDS: OSELTAMIVIR 75 MG CAP PO ONE (05:26)
[2024-10-14] MEDS ORDERED: OSEL75CA5 PO (05:54)
[2024-10-14 06:33] VITALS: BP 140/96; PULSE 99; RESP 16; TEMP 99.2; O2SAT 98
[2024-10-14 06:38] LABS: Magnesium 1.9 mg/dL (1.6-2.6)
== END 2024-10-14 06:41 | disposition home or self-care (01) ==
LOC: ER 02:20
DX: E10.65 Type 1 diabetes mellitus with hyperglycemia (principal); J10.1 Influenza due to other identified influenza virus with other respiratory manifestations; J45.909 Unspecified asthma, uncomplicated; I10 Essential (primary) hypertension; E78.5 Hyperlipidemia, unspecified; F17.210 Nicotine dependence, cigarettes, uncomplicated; Z79.4 Long term (current) use of insulin; Z79.899 Other long term (current) drug therapy; Z20.822 Contact with and (suspected) exposure to COVID-19
CPT/HCPCS: 36415; 36600; 80053; 81001; 81025; 82010; 82805; 82962; 83690; 83735; 83880; 84484; 85025; 87426; 87804; 93005; 96361; 96374; 96375; 99284; J0360; J1815; J1885; J7030

== ENCOUNTER 2024-10-29 23:05 | Inpatient (IN) | payer MEDICAID ==
[~2024-10-29] VITALS: Ht 170.2 cm; Wt 85.6 kg
[~2024-10-29 23:05] MED LIST: OSEL75CA5 PO
[2024-10-30] MEDS: KETOROLAC TROMETH 30 MG/ML 1ML VIAL IV ONE (00:11)
[2024-10-30 04:09] LABS: Urine Bacteria None Seen /hpf (None Seen)
--- NOTE | 2024-10-30 04:16 | ED.PDOC ---
History of present illness HPI Comments 39-year-old female with past medical history pertinent for HTN, DM, fibromyalgia, presents to ED for high blood sugar levels x2 days, associated with weakness, fatigue, dizziness, nausea, vomiting, headache. Patient reports that she had influenza B two weeks ago and since then her blood sugar levels have been elevated. She states that her blood sugars at home were 497, 512. She states that she has been taking her insulin as prescribed. Patient denies any alleviating or aggravating factors. Chief Complaint: Hyperglycemia Time Seen by MD: 04:06 Primary Care Provider: OUT OF AREA Allergies: Coded Allergies: NO KNOWN ALLERGIES (Unverified , 10/03/12) Home Meds Active Scripts Oseltamivir Phosphate (Tamiflu) 75 Mg Cap, 1 CAP PO BID for 5 Days, #9 CAP Prov:ALLEN HERNÁNDEZ MD 10/14/24 Mode of Arrival: Ambulatory Past Medical History PAST MEDICAL HISTORY: Asthma, DM, High Lipids, HTN PIPELINES SUPERINTENDENT History: No Pertinent PIPELINES SUPERINTENDENT History Family History Family History (Other): Fibromyalgia Social History Smoker: Cigarettes Alcohol: Occasionally Drugs: Denies Drug Use Lives In: Home Constitutional: reports: fatigue, weakness; denies: chills, diaphoresis, fever, malaise, sweats, others EENTM: denies: blurred vision, double vision, ear bleeding, ear discharge, ear drainage, ear pain, ear ringing, eye pain, eye redness, hearing loss, mouth pain, mouth swelling, nasal discharge, nose bleeding, nose congestion, nose pain, photophobia, tearing, throat pain, throat swelling, voice changes, others Respiratory: denies: cough, hemoptysis, orthopnea, SOB at rest, shortness of breath, SOB with excertion, stridor, wheezing, others Cardiovascular: denies: chest pain, dizzy spells, diaphoresis, Dyspnea on exertion, edema, irregular heart beat, left arm pain, lightheadedness, p alpitations, PND, syncope, others Gastrointestinal: reports: nausea, vomiting; denies: abdomen distended, abdominal pain, blood streaked bowels, constipated, diarrhea, dysphagia, difficulty swallowing, hematemesis, melena, poor appetite, poor fluid intake, rectal bleeding, rectal pain, others Genitourinary: denies: abnormal vagina bleeding, burning, dyspareunia, dysuria, flank pain, frequency, hematuria, incontinence, pain, , vagina discharge, urgency, others Neurological: reports: dizziness, headache; denies: fainting, left sided numbness, left sided weakness, numbness, paresthesia, pre-existing deficit, right sided numbness, right sided weakness, seizure, speech problems, tingling, tremors, weakness, others Musculoskeletal: denies: back pain, gout, joint pain, joint swelling, muscle pain, muscle stiffness, neck pain, others Integumetry: denies: bruises, change in color, change in hair/nails, dryness, laceration, lesions, lumps, rash, wounds, others Allergic/Immunocompromised: denies: Difficulty Healing, Frequent Infections, Hives, Itching, others Hematologic/Lymphatic: denies: anemia, blood clots, easy bleeding, easy bruising, swollen glands, others Endocrine: denies: excessive hunger, excessive sweating, excessive thirst, excessive urination, flushing, intolerance to cold, intolerance to heat, unexplained weight gain, unexplained weight loss, others Psychiatric: denies: anxiety, bipolar disorder, depression, hopeless, panic disorder, schizophrenia, sleepless, suicidal, others All Other Systems: Reviewed and Negative Physical Exam General Appearance: Mild Distress, Normal HEENT: Normal ENT Inspection, Pharynx Normal, TMs Normal Neck: Full Range of Motion, Non-Tender, Normal, Normal Inspection Respiratory: Chest Non-Tender, Lungs Clear, No Accessory Muscle Use, No Respiratory Distress, Normal Breath Sounds Cardiovascular: No Edema, No JVD, No Murmur, No Gallop, Normal Peripheral Pulses, Regular Rate/Rhythm Breast Exam: Deferred Gastrointestinal: No Organomegaly, Non Tender, No Pulsatile Mass, Normal Bowel Sounds, Soft Genitalia: Deferred Pelvic: Deferred Rectal: Deferred Extremities: No calf tenderness, Normal capillary refill, Normal inspection, Normal range of motion, Non-tender, No pedal edema Musculoskeletal : Apperance: Normal Neurologic: Alert, camp attendant II-XII nml as Tested, No Motor Deficits, Normal Affect, Normal Mood, No Sensory Deficits Cerebellar Function: Normal Reflexes: Normal Skin: Dry, Normal Color, Warm Lymphatic: No Adenopathy Was a procedure done? Was a procedure done?: No Differential Diagnosis (DM) Differential Diagnosis: Dehydration, Diabetic Coma, DKA, Electrolyte Abnormality, Hyperosmolar State, Pancreatitis, Pyelonephritis, UTI X-Ray, Labs, Meds, VS Vital Signs Date Time Temp Pulse Resp B/P (MAP) Pulse Ox O2 Delivery O2 Flow Rate FiO2 10/30/24 04:17 98.7 75 15 127/84 (98) 96 98.7 10/29/24 23:05 99.4 97 16 162/111 (128) 98 99.4 Lab Test 10/30/24 00:28 10/29/24 23:55 Range/Units Urine Color Colorless Yellow Urine Clarity Clear Clear Urine pH 5.5 5.0-9.0 Urine Specific [place] 1.032 1.001-1.035 Urine Protein Negative Negative Urine Ketones Negative Negative Urine Blood Negative Negative /uL Urine Nitrite Negative Negative Urine Bilirubin Negative Negative Urine Urobilinogen Normal Negative mg/dL Urine Leukocyte Esterase Negative Negative /uL Urine RBC 1 0 - 4 /hpf Urine Microscopic WBC 2 0-5 /HPF Urine Squamous Epithelial Cells Few <5 /hpf Urine Bacteria None seen None Seen /hpf Urine Glucose 4+ H Normal mg/dL White Blood Count 8.1 4.4-10.8 10^3/uL Red Blood Count 4.91 4.0-5.20 10^6/uL Hemoglobin 14.5 12.2-16.2 g/dL Hematocrit 41.6 36.0-46.0 % Mean Corpuscular Volume 84.7 80.0-100.0 fL Mean Corpuscular Hemoglobin 29.6 28.0-32.0 pg Mean Corpuscular Hemoglobin Concent 35.0 32.0-36.0 g/dL Red Cell Distribution Width 13.6 11.8-14.3 % Platelet Count 398 140-450 10^3/uL Mean Platelet Volume 7.2 6.9-10.8 fL Neutrophils (%) (Auto) 49.9 37.0-80.0 % Lymphocytes (%) (Auto) 41.6 10.0-50.0 % Monocytes (%) (Auto) 6.7 0.0-12.0 % Eosinophils (%) (Auto) 0.8 0.0-7.0 % Basophils (%) (Auto) 1.0 0.0-2.0 % Neutrophils # (Auto) 4.0 1.6-8.6 10 ^3/uL Lymphocytes # (Auto) 3.4 0.4-5.4 10 ^3/uL Monocytes # (Auto) 0.5 0-1.3 10 ^3/uL Eosinophils # (Auto) 0.1 0-0.8 10 ^3/uL Basophils # (Auto) 0.1 0-0.2 10 ^3/uL Nucleated Red Blood Cells 0.3 % Sodium Level 129 L 136-145 mmol/L Potassium Level 4.3 3.5-5.1 mmol/L Chloride Level 96 L 98-107 mmol/L Carbon Dioxide Level 20 20-31 mmol/L Anion Gap 13 5-15 Blood Urea Nitrogen 12 9-23 mg/dL Creatinine 0.99 0.550-1.02 mg/dL Glomerular Filtration Rate Calc 74 >90 mL/min BUN/Creatinine Ratio 12.1 10.0-20.0 Serum Glucose 472 *H 74-106 mg/dL Lactic Acid Level 2.5 *H 0.4-2.0 mmol/L Calcium Level 10.2 8.7-10.4 mg/dL Total Bilirubin 0.5 0.2-1.0 mg/dL Aspartate Amino Transferase (AST) 16 13-40 U/L Alanine Aminotransferase (ALT) 37 7-40 U/L Alkaline Phosphatase 97 46-116 U/L Total Protein 7.6 5.7-8.2 g/dL Albumin 4.7 3.2-4.8 g/dL Beta-Hydroxybutyric Acid 0.228 < 0.4 mmol/L Current Medications Medications (Trade) Dose Ordered Sig/Tamy Route Start Time Stop Time Status Last Admin Sodium Chloride 1,000 ml @ 1,000 mls/hr Q1H ONCE IV 10/30/24 00:00 10/30/24 04:12 DC 10/30/24 00:00 X-Ray, Labs, Meds, VS Comment MDM: Patient with history as above presented with hyperglycemia. History obtained from patient. Patient was nontoxic, stable, afebrile, ambulatory, no acute distress. Exam as above. Labs reviewed. CBC did not show leukocytosis. No anemia. CMP showed hyponatremia at 129 and hypochloremia at 96. Serum glucose elevated 472. Lactic acid 2.5. Beta hydroxybutyric acid within normal limits. Urinalysis did not show any ketones or infection. There was 4+ urine glucose. Reviewed external records. All findings were discussed with the patient. Differential diagnosis considered. Overall presentation is consistent with uncontrolled diabetes. Low suspicion for DKA, HHS, UTI, pyelonephritis. Patient was treated with IV fluids and Toradol with improvement in symptoms. She also states that she has a vaginal yeast infection on re-evaluation, therefore ordered Fluconazole. Patient be admitted to the hospital for further evaluation due to uncontrolled diabetes. Patient also had lactic acidosis, however no increased anion gap or ketones in the urine, therefore highly doubt DKA. Patient will need admission for blood sugar management. Disposition: Admit This medical document was created using the [employer] dictation system. Although this document has been carefully reviewed, there may still be some phonetic and typographical errors, which are due to imperfections of the software program, and do not reflect any compromise in the patient's medical care. Time of 1ST Reevaluation: 04:16 Reevaluation 1ST: Improved Time of 2ND Reevaluation: 04:53 Reevaluation 2ND: Improved Patient Education/Counseling: Diagnosis, Treatment, Prognosis, Need For Follow Up Family Education/Counseling: No Family Present Departure 1 Departure Time of Disposition: 04:53 Impression: Primary Impression: Hyperglycemia Additional Impressions: Lactic acidosis Uncontrolled diabetes mellitus Qualified Codes: E11.65 - Type 2 diabetes mellitus with hyperglycemia Disposition: 09 ADMITTED INPATIENT Condition: Fair Critical Care Note Critical Care Time?: No Stability Stability form required: No Heart Score Heart Score: Heart Score Response (Comments) Value History N/A 0 EKG N/A 0 Age N/A 0 Risk Factors N/A 0 Troponin N/A 0 Total 0 CONG LUNDBERG Oct 30, 2024 04:16
[2024-10-30 04:20] LABS: Alanine Aminotransferase 37 U/L (7-40); Albumin 4.7 g/dL (3.2-4.8); Alkaline Phosphatase 97 U/L (46-116); Anion Gap 13 (5-15); BUN/Creatinine Ratio 12.1 (10.0-20.0); Bilirubin, Total 0.5 mg/dL (0.2-1.0); Blood Urea Nitrogen 12 mg/dL (9-23); Calcium 10.2 mg/dL (8.7-10.4); Carbon Dioxide 20 mmol/L (20-31); Potassium 4.3 mmol/L (3.5-5.1); Total Protein 7.6 g/dL (5.7-8.2)
[2024-10-30 04:23] LABS: Aspartate Aminotransferase 16 U/L (13-40); Chloride 96 mmol/L (98-107); Sodium 129 mmol/L (136-145)
[2024-10-30 04:24] LABS: Glucose 472 mg/dL (74-106)
[2024-10-30 04:31] LABS: Basophils # (auto) 0.1 10 ^3/uL (0-0.2); Eosinophils # (auto) 0.1 10 ^3/uL (0-0.8); Eosinophils % (auto) 0.8 % (0.0-7.0); Hematocrit 41.6 % (36.0-46.0); Hemoglobin 14.5 g/dL (12.2-16.2); Lymphocytes # (auto) 3.4 10 ^3/uL (0.4-5.4); Lymphocytes % (auto) 41.6 % (10.0-50.0); Mean Corpuscular Hemoglobin 29.6 pg (28.0-32.0); Mean Corpuscular Volume 84.7 fL (80.0-100.0); Monocytes # (auto) 0.5 10 ^3/uL (0-1.3); Monocytes % (auto) 6.7 % (0.0-12.0); Neutrophils % (auto) 49.9 % (37.0-80.0); Nucleated Red Blood Cells % 0.3 %; Platelet Count (auto) 398 10^3/uL (140-450); Red Blood Cells 4.91 10^6/uL (4.0-5.20); Red Cell Distribution Width 13.6 % (11.8-14.3); White Blood Cell 8.1 10^3/uL (4.4-10.8)
[2024-10-30 04:33] LABS: Urine Blood Negative /uL (Negative); Urine Clarity Clear (Clear); Urine Color Colorless (Yellow); Urine Protein, UAD Negative (Negative); Urine Specific Gravity 1.032 (1.001-1.035); Urine Squamous Epithelial Cell FEW /hpf (<5); Urine Urobilinogen Normal (Negative); Urine WBC 2 /HPF (0-5); Urine pH 5.5 (5.0-9.0)
[2024-10-30 04:38] LABS: Lactic Acid w/Reflex 2.5 mmol/L (0.4-2.0)
[2024-10-30] MEDS: SODIUM CHLORIDE 0.9% 1,000 ML IV ONE ×2 (04:50)
[2024-10-30] MEDS: ONDANSETRON HCL 4 MG/2 ML VIAL IV ONE (04:51)
[2024-10-30] MEDS: FLUCONAZOLE 100 MG TAB PO ONE (04:56)
[2024-10-30] MEDS: InsuLIN REG 1unit/0.01ml Soln (100units/ml) SC ONE (05:01)
[2024-10-30 07:40] VITALS: PULSE 72; RESP 18; O2SAT 97
[2024-10-30] MEDS ORDERED: DEXTROSE (50%) 50ML SYRG IV PRN (09:45)
[2024-10-30] MEDS ORDERED: DOCUSATE SOD 100 MG CAP PO PRN (09:45)
[2024-10-30] MEDS ORDERED: ONDANSETRON HCL 4 MG/2 ML VIAL IV PRN (09:45)
[2024-10-30] MEDS ORDERED: INSU1INJ19 SC (09:46)
--- NOTE | 2024-10-30 10:04 | DVHHP2 ---
History of Present Illness Reason for Visit: Hyperglycemia History of Present Illness Kallie Samaniego is a [id number] female with past medial history of diabetes, and hypertension who came in due to elevated blood sugar levels. Patient states she was seen here on 10/14/2024 for influenza B. She was sent home with Tamiflu and she takes Basaglar 10 units Sub Q nightly for her diabetes. Since going home she has not been able to control her blood sugar levels. She states the lowest she would get is in the high 300s. She states that she has also continued to feel bad since leaving. She continues to have headaches, nasal drainage, body aches, malaise, and sore throat. Patient states that she use to take an tihypertensive medications, but that she has not received any for a couple years. Cardiovascular: HTN Endocrine: Diabetes Past Surgical History: Other (Tummy tuck) Smoke: <1 pack per day (nicotine vape) ALCOHOL: occassional Drugs: None Lives: with Family Domestic Violence: Neg Review of Systems Constitutional: Yes: Weakness, Malaise, Other (Headache, and hyperglycemia); No: Fever, Chills, Sweats Eyes: No: Pain, Vision change, Conjunctivae inflammation, Eyelid inflammation, Other, Redness ENT: Nose discharge, Nose congestion, Throat pain; No: Ear pain, Ear discharge, Nose pain, Mouth pain, Mouth swelling, Throat swelling, Other Respiratory: No: Cough, Dry, Shortness of breath, SOB with excertion, Wheezing, Hemoptysis, Pleuritic Pain, Sputum, Wheezing, Other Cardiovascular: No: Chest Pain, Palpitations, Orthopnea, Paroxysmal Noc. Dyspnea, Edema, Lt Headedness, Other Gastrointestinal: No: Nausea, Vomiting, Abdominal Pain, Diarrhea, Constipation, Melena, Hematochezia, Other Genitourinary: No Dysuria, No Frequency, No Incontinence, No Hematuria, No Retention, No Other Musculoskeletal: No: other, neck pain, shoulder pain, arm pain, back pain, hand pain, leg pain, foot pain Skin: No: Rash, Lesions, Jaundice, Bruising, Other Neurological: No: Weakness, Numbness, Incoordination, Change in speech, Confusion, Seizures, Other Allergies: Coded Allergies: NO KNOWN ALLERGIES (Unverified , 10/03/12) Exam Vital Signs Vital Signs Date Time Temp Pulse Resp B/P (MAP) Pulse Ox O2 Delivery O2 Flow Rate FiO2 10/30/24 09:15 98.7 70 20 141/85 (103) 96 98.7 10/30/24 07:40 Room Air* 0 21 General Appearance: Alert, Oriented X3, Cooperative, moderate distress HEENT: Atraumatic, PERRLA Respiratory: Clear to auscultation, Normal air movement Cardiovascular: Regular rate, Normal S1, Normal S2, No murmurs Abdominal: Normal bowel sounds, Soft, No tenderness, No hepatospenomegaly Extremities: No clubbing, No cyanosis, No edema, Normal pulses Skin: No rashes, No breakdown, No significant lesion Neuro: Normal gait, Normal speech, Strength at 5/5 X4 ext, Normal tone Psych/Mental Status: Mental status NL, Mood NL Labs/Xrays Labs Test 10/30/24 09:09 10/30/24 06:05 10/30/24 00:28 10/29/24 23:55 Range/Units POC Glucose 352 H 70-106 mg/dl Lactic Acid Level 1.0 0.4-2.0 mmol/L Urine Color Colorless Yellow Urine Clarity Clear Clear Urine pH 5.5 5.0-9.0 Urine Specific [place] 1.032 1.001-1.035 Urine Protein Negative Negative Urine Ketones Negative Negative Urine Blood Negative Negative /uL Urine Nitrite Negative Negative Urine Bilirubin Negative Negative Urine Urobilinogen Normal Negative mg/dL Urine Leukocyte Esterase Negative Negative /uL Urine RBC 1 0 - 4 /hpf Urine Microscopic WBC 2 0-5 /HPF Urine Squamous Epithelial Cells Few <5 /hpf Urine Bacteria None seen None Seen /hpf Urine Glucose 4+ H Normal mg/dL White Blood Count 8.1 4.4-10.8 10^3/uL Red Blood Count 4.91 4.0-5.20 10^6/uL Hemoglobin 14.5 12.2-16.2 g/dL Hematocrit 41.6 36.0-46.0 % Mean Corpuscular Volume 84.7 80.0-100.0 fL Mean Corpuscular Hemoglobin 29.6 28.0-32.0 pg Mean Corpuscular Hemoglobin Concent 35.0 32.0-36.0 g/dL Red Cell Distribution Width 13.6 11.8-14.3 % Platelet Count 398 140-450 10^3/uL Mean Platelet Volume 7.2 6.9-10.8 fL Neutrophils (%) (Auto) 49.9 37.0-80.0 % Lymphocytes (%) (Auto) 41.6 10.0-50.0 % Monocytes (%) (Auto) 6.7 0.0-12.0 % Eosinophils (%) (Auto) 0.8 0.0-7.0 % Basophils (%) (Auto) 1.0 0.0-2.0 % Neutrophils # (Auto) 4.0 1.6-8.6 10 ^3/uL Lymphocytes # (Auto) 3.4 0.4-5.4 10 ^3/uL Monocytes # (Auto) 0.5 0-1.3 10 ^3/uL Eosinophils # (Auto) 0.1 0-0.8 10 ^3/uL Basophils # (Auto) 0.1 0-0.2 10 ^3/uL Nucleated Red Blood Cells 0.3 % Sodium Level 129 L 136-145 mmol/L Potassium Level 4.3 3.5-5.1 mmol/L Chloride Level 96 L 98-107 mmol/L Carbon Dioxide Level 20 20-31 mmol/L Anion Gap 13 5-15 Blood Urea Nitrogen 12 9-23 mg/dL Creatinine 0.99 0.550-1.02 mg/dL Glomerular Filtration Rate Calc 74 >90 mL/min BUN/Creatinine Ratio 12.1 10.0-20.0 Serum Glucose 472 *H 74-106 mg/dL Calcium Level 10.2 8.7-10.4 mg/dL Total Bilirubin 0.5 0.2-1.0 mg/dL Aspartate Amino Transferase (AST) 16 13-40 U/L Alanine Aminotransferase (ALT) 37 7-40 U/L Alkaline Phosphatase 97 46-116 U/L Total Protein 7.6 5.7-8.2 g/dL Albumin 4.7 3.2-4.8 g/dL Beta-Hydroxybutyric Acid 0.228 < 0.4 mmol/L CHEST RADIOGRAPH FINDINGS: Lines and Tubes: None Lungs: Clear Pleura: No effusion. No pneumothorax. Cardiomediastinal contours: Unremarkable Bones: Unremarkable IMPRESSION: No acute disease. Assessment/Plan Assessment/Plan Assessment: Uncontrolled diabetes mellitus, Lactic acidosis, Hypertension, Yeast infection, Plan: Admit to Med-Surg, Increase home dose of long acting insulin, Accu checks Q AC&HS with sliding scale, Chest-Xray, Influenza A&B swab, COVID swab, Antihypertensives, ER gave a dose of fluconazole, Home medications reconciled, A1c, Plan discussed with: Patient My Orders Orders - JAN SALAS Procedure Category Date Status Time Admit ADMIT 10/30/24 Verified 09:43 Code Status CODE 10/30/24 Verified 09:43 2 Gm Sodium Diet DIET 10/30/24 Verified Lunch Hydrocodone-Acet PHA 10/30/24 Verified 5/325mg Tab ([place] 09:45 Ondansetron Hcl PHA 10/30/24 Verified (Zofran) 09:45 Docusate Sodium PHA 10/30/24 Verified Capsule (Colace 09:45 Complete Blood Count LAB 10/31/24 Verified 04:00 Comprehensive LAB 10/31/24 Verified Metabolic Panel 04:00 Condition: Serious KASIA 10/30/24 Verified 09:43 Acetaminophen Tablet PHA 10/30/24 Verified (Tylenol Tablet) 09:45 Insulin Lantus PHA 10/30/24 Verified (Glargine) (Lantus) 09:45 Glucose Blood PHA 10/30/24 Verified (Accu-Chek Comfort 11:30 Bedtime Insulin Scale PHA 10/30/24 Verified 22:00 Moderate Insulin Ss PHA 10/30/24 Verified 11:30 Dextrose 50% Syringe PHA 10/30/24 Verified 09:45 Date of Service: Oct 30, 2024 Billing Provider: JAN SALAS Common Visit Codes: 62133-[id number] INP/OBS CARE (MOD) JAN SALAS Oct 30, 2024 10:04
--- NOTE | 2024-10-30 10:21 | DVH ---
CHEST RADIOGRAPH Indication: SOB Technique: Single frontal view of the chest was obtained COMPARISON: XY CHEST PORTABLE on DOS: 06/18/24 FINDINGS: Lines and Tubes: None Lungs: Clear Pleura: No effusion. No pneumothorax. Cardiomediastinal contours: Unremarkable Bones: Unremarkable IMPRESSION: No acute disease.
[2024-10-30] MEDS: hydroCHLOROthiazide 25 MG TAB PO SCH (10:37)
[2024-10-30] MEDS: INSULIN LANTUS (GLARGINE) 1 /0.01ml (100units/ml) SC SCH (10:37)
[2024-10-30 10:57] LABS: COVID19 ANTIGEN SOFIA FIA NEGATIVE (NEGATIVE); Rapid Influenza A Negative (Negative); Rapid Influenza B Negative (Negative)
[2024-10-30] MEDS: HYDROcodone-ACET 5/325MG TAB PO PRN (11:11)
[2024-10-30] MEDS: ACCU-CHEK COMFORT CURVE STRIP VI SCH (11:35)
[2024-10-30] MEDS: InsuLIN REG 1unit/0.01ml Soln (100units/ml) SC SCH ×2 (11:51→22:00)
[2024-10-30 13:30] VITALS: BP 143/81; PULSE 70; RESP 16; TEMP 98.4; O2SAT 97
[2024-10-30 14:05] VITALS: PULSE 69; RESP 14
[2024-10-30 17:00] VITALS: BP 133/81; PULSE 69; RESP 14; TEMP 98.5; O2SAT 92
[2024-10-30 20:37] VITALS: BP 136/83; PULSE 71; RESP 18; TEMP 98; O2SAT 97
[2024-10-31] VITALS (8 sets, daily range): BP systolic 115–139; BP diastolic 68–86; PULSE 67–83; RESP 16–20; TEMP 97.8–98.7; O2SAT 95–100
[2024-10-31 07:23] LABS: Basophils # (auto) 0 10 ^3/uL (0-0.2); Basophils % (auto) 0.5 % (0.0-2.0); Eosinophils # (auto) 0.2 10 ^3/uL (0-0.8); Eosinophils % (auto) 2.8 % (0.0-7.0); Hematocrit 35.6 % (36.0-46.0); Hemoglobin 12.7 g/dL (12.2-16.2); Lymphocytes # (auto) 2.4 10 ^3/uL (0.4-5.4); Lymphocytes % (auto) 43.7 % (10.0-50.0); Mean Corpuscular Hemoglobin 29.7 pg (28.0-32.0); Mean Corpuscular Hgb Conc. 35.6 g/dL (32.0-36.0); Mean Corpuscular Volume 83.6 fL (80.0-100.0); Monocytes # (auto) 0.4 10 ^3/uL (0-1.3); Monocytes % (auto) 7.3 % (0.0-12.0); Neutrophils # (auto) 2.5 10 ^3/uL (1.6-8.6); Neutrophils % (auto) 45.7 % (37.0-80.0); Nucleated Red Blood Cells % 0.2 %; Platelet Count (auto) 315 10^3/uL (140-450); Red Blood Cells 4.25 10^6/uL (4.0-5.20); Red Cell Distribution Width 13.6 % (11.8-14.3); White Blood Cell 5.4 10^3/uL (4.4-10.8)
[2024-10-31 07:38] LABS: Alanine Aminotransferase 32 U/L (7-40); Albumin 3.8 g/dL (3.2-4.8); Alkaline Phosphatase 68 U/L (46-116); Anion Gap 7 (5-15); Aspartate Aminotransferase 23 U/L (13-40); BUN/Creatinine Ratio 17.9 (10.0-20.0); Bilirubin, Total 0.6 mg/dL (0.2-1.0); Blood Urea Nitrogen 12 mg/dL (9-23); Calcium 9.1 mg/dL (8.7-10.4); Carbon Dioxide 27 mmol/L (20-31); Chloride 103 mmol/L (98-107); Potassium 3.8 mmol/L (3.5-5.1); Sodium 137 mmol/L (136-145); Total Protein 6.2 g/dL (5.7-8.2)
[2024-10-31 07:44] LABS: Glucose 184 mg/dL (74-106)
--- NOTE | 2024-10-31 10:35 | DVHPN2 ---
Subjective Continues to complain of vaginal discharge Reviewed: Care Plan, H&P, Labs, Medications, Previous Orders, Radiology Changes from previous H/P or p: No Changes Objective Vitals Vital Signs Date Time Temp Pulse Resp B/P (MAP) Pulse Ox O2 Delivery O2 Flow Rate FiO2 10/31/24 09:35 115/68 10/31/24 09:00 98.0 78 20 95 98.0 10/30/24 16:56 Room Air* 0 21 Intake/Output Intake and Output 10/31/24 07:00 Intake Total 350 ml Output Total 8 ml Balance 342 ml Intake Oral 350 ml Output Urine Total 8 ml # Voids 5 General Appearance: Alert, Oriented X3, Cooperative, No acute distress HEENT: Atraumatic Lungs: Clear to auscultation, Normal air movement Cardiovascular: Regular rate, Normal S1, Normal S2, No murmurs Abdomen: Normal bowel sounds, Soft, No tenderness Genitourinary: Other (Deferred by patient) COMPUTER OPERATIONS TECHNICIAN: Other (Deferred by patient) Extremities: No edema Neuro: Normal speech, Cranial nerves 3-12 NL Psych/Mental Status: Mental status NL, Mood NL Medications Current Medications Medications Dose Ordered Sig/Tamy Route Start Time Stop Time Status Last Admin Dose Admin Acetaminophen/ Hydrocodone Bitart 1 tab Q4HP PRN PO 10/30/24 09:45 10/31/24 09:35 1 TAB Ondansetron HCl 4 mg Q4HP PRN IV 10/30/24 09:45 Docusate Sodium 100 mg BIDPRN PRN PO 10/30/24 09:45 Acetaminophen 650 mg Q6HP PRN PO 10/30/24 09:45 Insulin Glargine 10 units BID@0700,2200 SC 10/30/24 09:45 10/31/24 06:24 10 UNITS Diagnostic Test (Pha) 1 strip ACHS 10/30/24 11:30 10/31/24 06:24 1 STRIP Insulin Human Regular HS SC 10/30/24 22:00 10/30/24 22:00 8 UNITS Insulin Human Regular AC SC 10/30/24 11:30 10/31/24 06:24 3 UNITS Dextrose 50 ml UD PRN IV 10/30/24 09:45 Hydrochlorothiazide 12.5 mg DAILY PO 10/30/24 10:00 10/31/24 09:35 12.5 MG Laboratory Results Laboratory Tests 10/31/24 05:50 Chemistry Test 10/31/24 05:50 Albumin 3.8 g/dL (3.2-4.8) Calcium Level 9.1 mg/dL (8.7-10.4) Total Protein 6.2 g/dL (5.7-8.2) LFT Test 10/31/24 05:50 Alanine Aminotransferase (ALT) 32 U/L (7-40) Alkaline Phosphatase 68 U/L (46-116) Aspartate Amino Transferase (AST) 23 U/L (13-40) Total Bilirubin 0.6 mg/dL (0.2-1.0) Urinalysis Test 10/30/24 00:28 Urine Color Colorless (Yellow) Urine Clarity Clear (Clear) Urine pH 5.5 (5.0-9.0) Urine Specific [place] 1.032 (1.001-1.035) Urine Protein Negative (Negative) Urine Ketones Negative (Negative) Urine Blood Negative /uL (Negative) Urine Nitrite Negative (Negative) Urine Bilirubin Negative (Negative) Urine Urobilinogen Normal mg/dL (Negative) Urine Leukocyte Esterase Negative /uL (Negative) Urine RBC 1 /hpf (0 - 4) Urine Microscopic WBC 2 /HPF (0-5) Urine Squamous Epithelial Cells Few /hpf (<5) Urine Bacteria None seen /hpf (None Seen) Urine Glucose 4+ mg/dL (Normal) H Labs and/or images reviewed: Labs reviewed by me, Image(s) reviewed by me Assessment/Plan Assessment/Plan A 39-year-old female patient; with past medical history of uncontrolled diabetes mellitus and essential hypertension; who presented to the emergency department with hyperglycemia. #Uncontrolled diabetes mellitus with hyperglycemia, hemoglobin A1c of 9.7%; continue Lantus and adjust according to blood glucose measurements; continue insulin sliding scale with hypoglycemia protocol; continue monitoring #Lactic acidosis in the setting of suspected dehydration; resolved; received IV fluids; continue monitoring #NOEMÍ; suspected vasomotor nephropathy versus suspected dehydration; avoid nephrotoxic agents; resolved; received IV fluids; continue monitoring #Vaginal discharge; suspected fungal infection; ordered fungal culture; consulted COMPUTER OPERATIONS TECHNICIAN; started on fluconazole IV; continue monitoring #Essential hypertension; continue home hydrochlorothiazide; added IV hydralazine as needed; continue monitoring blood pressure and adjust antihypertensive medications as indicated; continue monitoring #Overweight; counseled the patient about the importance of adopting healthy lifestyle with diet and exercise in order to lose weight; continue monitoring #Tobacco use disorder; vapes nicotine; counseled on tobacco use cessation for 17 minutes; continue monitoring Goals of care discussed with the patient for 20 minutes; full code Late Entry. This medical document was created using an electronic medical record system with computerized dictation system. Although this document has been carefully reviewed, there might still be some phonetic and typographical errors. These areas are purely typographical due to imperfections of the software programs, and do not reflect any compromise in the patient's medical care. Plan discussed with: Patient, Other (Nurse) My Orders Orders - CIELO PAT MD Procedure Category Date Status Time Basic Metabolic Panel LAB 11/01/24 Verified 04:00 Date of Service: Oct 31, 2024 Billing Provider: CIELO PAT MD Common Visit Codes: [id number] INP/OBS CARE(HIGH) Secondary Visit Codes: 88537-RZNAL CHNG SMOKING >10MIN (Counseled on tobacco use cessation for 17 minutes), [id number]-HCFOSCYZ CARE PLAN 30 MINUTES (20 minutes) CIELO PAT MD Oct 31, 2024 10:35
[2024-10-31] MEDS: ACETAMINOPHEN 325 MG TAB PO PRN (12:00)
[2024-10-31] MEDS: FLUCONAZOLE 200MG/100ML 100 ML IV ONE (12:26)
[2024-10-31] MEDS ORDERED: hydrALAZINE HCL 20 MG/ML VL IV PRN (15:15)
[2024-11-01] VITALS (8 sets, daily range): BP systolic 100–142; BP diastolic 63–86; PULSE 70–85; RESP 17–20; TEMP 97.6–98.9; O2SAT 94–100
--- NOTE | 2024-11-01 05:12 | DVHPN2 ---
Subjective Decreasing vaginal discharge Reviewed: Care Plan, H&P, Labs, Medications, Previous Orders, Radiology, Other (Consultation) Changes from previous H/P or p: Changes Objective Vitals Vital Signs Date Time Temp Pulse Resp B/P (MAP) Pulse Ox O2 Delivery O2 Flow Rate FiO2 11/01/24 01:00 98.4 82 17 142/84 (103) 97 98.4 10/31/24 20:00 Room Air* 0 21 Intake/Output Intake and Output 11/01/24 07:00 Intake Total 1420 ml Balance 1420 ml Intake Oral 1320 ml IV Total 100 ml # Voids 6 # Bowel Movements 1 General Appearance: Alert, Oriented X3, Cooperative, No acute distress HEENT: Atraumatic Lungs: Clear to auscultation, Normal air movement Cardiovascular: Regular rate, Normal S1, Normal S2, No murmurs Abdomen: Normal bowel sounds, Soft, No tenderness Genitourinary: Other (Deferred by patient) SECURITY SYSTEMS INTEGRATOR: Other (Deferred by patient) Extremities: No edema Neuro: Normal speech, Cranial nerves 3-12 NL Psych/Mental Status: Mental status NL, Mood NL Medications Current Medications Medications Dose Ordered Sig/Tamy Route Start Time Stop Time Status Last Admin Dose Admin Acetaminophen/ Hydrocodone Bitart 1 tab Q4HP PRN PO 10/30/24 09:45 10/31/24 09:35 1 TAB Ondansetron HCl 4 mg Q4HP PRN IV 10/30/24 09:45 Docusate Sodium 100 mg BIDPRN PRN PO 10/30/24 09:45 Acetaminophen 650 mg Q6HP PRN PO 10/30/24 09:45 11/01/24 00:46 650 MG Insulin Glargine 10 units BID@0700,2200 SC 10/30/24 09:45 10/31/24 22:39 10 UNITS Diagnostic Test (Pha) 1 strip ACHS 10/30/24 11:30 10/31/24 22:00 1 STRIP Insulin Human Regular HS SC 10/30/24 22:00 10/31/24 22:39 8 UNITS Insulin Human Regular AC SC 10/30/24 11:30 10/31/24 17:28 6 UNITS Dextrose 50 ml UD PRN IV 10/30/24 09:45 Hydrochlorothiazide 12.5 mg DAILY PO 10/30/24 10:00 10/31/24 09:35 12.5 MG Fluconazole 100 ml @ 100 mls/hr DAILY IV 11/01/24 10:00 Hydralazine HCl 10 mg Q6HP PRN IV 10/31/24 15:15 Laboratory Results Laboratory Tests 10/31/24 05:50 Chemistry Test 10/31/24 05:50 Albumin 3.8 g/dL (3.2-4.8) Calcium Level 9.1 mg/dL (8.7-10.4) Total Protein 6.2 g/dL (5.7-8.2) LFT Test 10/31/24 05:50 Alanine Aminotransferase (ALT) 32 U/L (7-40) Alkaline Phosphatase 68 U/L (46-116) Aspartate Amino Transferase (AST) 23 U/L (13-40) Total Bilirubin 0.6 mg/dL (0.2-1.0) Urinalysis Test 10/30/24 00:28 Urine Color Colorless (Yellow) Urine Clarity Clear (Clear) Urine pH 5.5 (5.0-9.0) Urine Specific [place] 1.032 (1.001-1.035) Urine Protein Negative (Negative) Urine Ketones Negative (Negative) Urine Blood Negative /uL (Negative) Urine Nitrite Negative (Negative) Urine Bilirubin Negative (Negative) Urine Urobilinogen Normal mg/dL (Negative) Urine Leukocyte Esterase Negative /uL (Negative) Urine RBC 1 /hpf (0 - 4) Urine Microscopic WBC 2 /HPF (0-5) Urine Squamous Epithelial Cells Few /hpf (<5) Urine Bacteria None seen /hpf (None Seen) Urine Glucose 4+ mg/dL (Normal) H Microbiology Microbiology Date/Time Source Procedure Growth Status 10/31/24 22:58 Vaginal Pending Resulted 10/31/24 22:58 Vaginal Pending Resulted 10/31/24 22:58 Vaginal Pending Resulted 10/31/24 22:58 Vaginal Pending Resulted 10/31/24 22:58 Vaginal - Final See Separate Report... Resulted 10/30/24 22:00 Nose MRSA Screen - Final Complete Labs and/or images reviewed: Labs reviewed by me, Image(s) reviewed by me Assessment/Plan Assessment/Plan A 39-year-old female patient; with past medical history of uncontrolled diabetes mellitus and essential hypertension; who presented to the emergency department with hyperglycemia. #Uncontrolled diabetes mellitus with hyperglycemia, hemoglobin A1c of 9.7%; continue Lantus and adjust according to blood glucose measurements; continue insulin sliding scale with hypoglycemia protocol; continue monitoring #Lactic acidosis in the setting of suspected dehydration; resolved; received IV fluids; continue monitoring #NOEMÍ; suspected vasomotor nephropathy versus suspected dehydration; avoid nephrotoxic agents; resolved; received IV fluids; continue monitoring #Vaginal discharge; suspected fungal infection; ordered fungal culture; consulted SECURITY SYSTEMS INTEGRATOR (evaluated the patient but no written note); continue fluconazole IV; continue monitoring #Essential hypertension; continue home hydrochlorothiazide; added IV hydralazine as needed; continue monitoring blood pressure and adjust antihypertensive medications as indicated; continue monitoring #Overweight; counseled the patient about the importance of adopting healthy lifestyle with diet and exercise in order to lose weight; continue monitoring #Tobacco use disorder; vapes nicotine; counseled on tobacco use cessation; continue monitoring Possible discharge tomorrow if blood glucose under better control Late Entry. This medical document was created using an electronic medical record system with computerized dictation system. Although this document has been carefully reviewed, there might still be some phonetic and typographical errors. These areas are purely typographical due to imperfections of the software programs, and do not reflect any compromise in the patient's medical care. Plan discussed with: Patient, Other (Nurse) My Orders Orders - CIELO PAT MD Procedure Category Date Status Time * Culinary Worker Consultation CONS 10/31/24 Transmitted 11:45 Fluconazole PHA 11/01/24 In Process 200mg/100ml (Diflucan 10:00 Complete Blood Count LAB 11/01/24 Logged 04:00 Comprehensive LAB 11/01/24 Logged Metabolic Panel 04:00 Hydralazine Injection PHA 10/31/24 In Process (Apresoline Inject 15:15 Fungus Culture With NEHEMIAH 10/31/24 In Process Stain 16:29 Fungus Culture With NEHEMIAH 10/31/24 Uncollected Stain 19:44 Date of Service: Nov 01, 2024 Billing Provider: CIELO PAT MD Common Visit Codes: [id number] INP/OBS CARE(HIGH) CIELO PAT MD Nov 01, 2024 05:12
[2024-11-01] MEDS: INSULIN LANTUS (GLARGINE) 1 /0.01ml (100units/ml) SC SCH (06:15)
[2024-11-01 07:37] LABS: Basophils # (auto) 0 10 ^3/uL (0-0.2); Basophils % (auto) 0.6 % (0.0-2.0); Eosinophils # (auto) 0.2 10 ^3/uL (0-0.8); Eosinophils % (auto) 2.8 % (0.0-7.0); Hematocrit 39.4 % (36.0-46.0); Hemoglobin 13.5 g/dL (12.2-16.2); Lymphocytes # (auto) 2.4 10 ^3/uL (0.4-5.4); Lymphocytes % (auto) 43.6 % (10.0-50.0); Mean Corpuscular Hemoglobin 28.9 pg (28.0-32.0); Mean Corpuscular Hgb Conc. 34.2 g/dL (32.0-36.0); Mean Corpuscular Volume 84.6 fL (80.0-100.0); Monocytes # (auto) 0.5 10 ^3/uL (0-1.3); Monocytes % (auto) 8.4 % (0.0-12.0); Neutrophils # (auto) 2.5 10 ^3/uL (1.6-8.6); Neutrophils % (auto) 44.6 % (37.0-80.0); Nucleated Red Blood Cells % 0.2 %; Platelet Count (auto) 331 10^3/uL (140-450); Red Blood Cells 4.66 10^6/uL (4.0-5.20); Red Cell Distribution Width 13.6 % (11.8-14.3); White Blood Cell 5.5 10^3/uL (4.4-10.8)
[2024-11-01 07:38] LABS: Alanine Aminotransferase 34 U/L (7-40); Alkaline Phosphatase 74 U/L (46-116); Anion Gap 10 (5-15); Aspartate Aminotransferase 19 U/L (13-40); BUN/Creatinine Ratio 17.3 (10.0-20.0); Bilirubin, Total 0.6 mg/dL (0.2-1.0); Blood Urea Nitrogen 13 mg/dL (9-23); Calcium 9.7 mg/dL (8.7-10.4); Carbon Dioxide 27 mmol/L (20-31); Chloride 99 mmol/L (98-107); Glucose 238 mg/dL (74-106); Potassium 3.7 mmol/L (3.5-5.1); Sodium 136 mmol/L (136-145); Total Protein 6.7 g/dL (5.7-8.2)
[2024-11-01] MEDS: FLUCONAZOLE 200MG/100ML 100 ML IV SCH (10:00)
[2024-11-01] MEDS: FLUCONAZOLE 100 MG TAB PO SCH (10:01)
[2024-11-01] MEDS: NYSTATIN TOPICAL POWDER 15GM TOP SCH (12:18)
[2024-11-02 01:00] VITALS: BP 114/72; PULSE 90; RESP 18; TEMP 97.4; O2SAT 96
[2024-11-02 05:00] VITALS: BP 118/84; PULSE 85; RESP 18; TEMP 97.3; O2SAT 95
--- NOTE | 2024-11-02 06:25 | DVHPN2 ---
Subjective Vaginal discharge continues to decrease Reviewed: Care Plan, H&P, Labs, Medications, Previous Orders, Radiology, Other (Consultation) Changes from previous H/P or p: Changes Objective Vitals Vital Signs Date Time Temp Pulse Resp B/P (MAP) Pulse Ox O2 Delivery O2 Flow Rate FiO2 11/02/24 05:00 97.3 85 18 118/84 (95) 95 97.3 11/01/24 20:00 Room Air* 0 21 Intake/Output Intake and Output 11/02/24 07:00 Intake Total 1750 ml Balance 1750 ml Intake Oral 1650 ml IV Total 100 ml # Voids 14 General Appearance: Alert, Oriented X3, Cooperative, No acute distress HEENT: Atraumatic Lungs: Clear to auscultation, Normal air movement Cardiovascular: Regular rate, Normal S1, Normal S2, No murmurs Abdomen: Normal bowel sounds, Soft, No tenderness Genitourinary: Other (Deferred by patient) MACHINE OPERATOR HELPER: Other (Deferred by patient) Extremities: No edema Neuro: Normal speech, Cranial nerves 3-12 NL Skin: Other (Multiple tattoos and piercings) Psych/Mental Status: Mental status NL, Mood NL Medications Current Medications Medications Dose Ordered Sig/Tamy Route Start Time Stop Time Status Last Admin Dose Admin Acetaminophen/ Hydrocodone Bitart 1 tab Q4HP PRN PO 10/30/24 09:45 11/01/24 21:09 1 TAB Ondansetron HCl 4 mg Q4HP PRN IV 10/30/24 09:45 Docusate Sodium 100 mg BIDPRN PRN PO 10/30/24 09:45 Acetaminophen 650 mg Q6HP PRN PO 10/30/24 09:45 11/01/24 00:46 650 MG Diagnostic Test (Pha) 1 strip ACHS 10/30/24 11:30 11/01/24 22:03 1 STRIP Insulin Human Regular HS SC 10/30/24 22:00 11/01/24 22:17 4 UNITS Insulin Human Regular AC SC 10/30/24 11:30 11/01/24 17:09 9 UNITS Dextrose 50 ml UD PRN IV 10/30/24 09:45 Hydrochlorothiazide 12.5 mg DAILY PO 10/30/24 10:00 11/01/24 10:00 12.5 MG Fluconazole 100 ml @ 100 mls/hr DAILY IV 11/01/24 10:00 11/01/24 10:00 100 MLS/HR Hydralazine HCl 10 mg Q6HP PRN IV 10/31/24 15:15 Insulin Glargine 15 units BID@0700,2200 SC 11/01/24 07:00 11/01/24 22:17 15 UNITS Fluconazole 150 mg DAILY PO 11/01/24 10:00 11/01/24 10:01 150 MG Nystatin 1 applic TID TOP 11/01/24 09:05 11/01/24 22:03 1 APPLIC Laboratory Results Laboratory Tests 11/01/24 06:53 Chemistry Test 11/01/24 06:53 Albumin 4.0 g/dL (3.2-4.8) Calcium Level 9.7 mg/dL (8.7-10.4) Total Protein 6.7 g/dL (5.7-8.2) LFT Test 11/01/24 06:53 Alanine Aminotransferase (ALT) 34 U/L (7-40) Alkaline Phosphatase 74 U/L (46-116) Aspartate Amino Transferase (AST) 19 U/L (13-40) Total Bilirubin 0.6 mg/dL (0.2-1.0) Urinalysis Test 10/30/24 00:28 Urine Color Colorless (Yellow) Urine Clarity Clear (Clear) Urine pH 5.5 (5.0-9.0) Urine Specific [place] 1.032 (1.001-1.035) Urine Protein Negative (Negative) Urine Ketones Negative (Negative) Urine Blood Negative /uL (Negative) Urine Nitrite Negative (Negative) Urine Bilirubin Negative (Negative) Urine Urobilinogen Normal mg/dL (Negative) Urine Leukocyte Esterase Negative /uL (Negative) Urine RBC 1 /hpf (0 - 4) Urine Microscopic WBC 2 /HPF (0-5) Urine Squamous Epithelial Cells Few /hpf (<5) Urine Bacteria None seen /hpf (None Seen) Urine Glucose 4+ mg/dL (Normal) H Microbiology Microbiology Date/Time Source Procedure Growth Status 10/31/24 22:58 Vaginal Pending Resulted 10/31/24 22:58 Vaginal Pending Resulted 10/31/24 22:58 Vaginal Pending Resulted 10/31/24 22:58 Vaginal Pending Resulted 10/31/24 22:58 Vaginal - Final See Separate Report... Resulted 10/30/24 22:00 Nose MRSA Screen - Final Complete Labs and/or images reviewed: Labs reviewed by me, Image(s) reviewed by me Assessment/Plan Assessment/Plan A 39-year-old female patient; with past medical history of uncontrolled diabetes mellitus and essential hypertension; who presented to the emergency department with hyperglycemia. #Uncontrolled diabetes mellitus with hyperglycemia, hemoglobin A1c of 9.7%; discharged on increased dose of long-acting insulin; prescription sent to pharmacy; to follow up with discharge clinic or primary care provider within one week #Lactic acidosis in the setting of suspected dehydration; resolved; received IV fluids; to follow up with discharge clinic or primary care provider within one week #NOEMÍ; suspected vasomotor nephropathy versus suspected dehydration; avoid nephrotoxic agents; resolved; received IV fluids; to follow up with discharge clinic or primary care provider within one week #Vaginal discharge; suspected fungal infection; pending fungal culture; consulted MACHINE OPERATOR HELPER (evaluated the patient but no written note); discharged on oral fluconazole; to follow up with MACHINE OPERATOR HELPER within two weeks #Essential hypertension; to resume home hydrochlorothiazide upon discharge; to follow up with discharge clinic or primary care provider within one week #Overweight; counseled the patient about the importance of adopting healthy lifestyle with diet and exercise in order to lose weight; to follow up with the primary care provider or discharge clinic within one week #Tobacco use disorder; vapes nicotine; counseled on tobacco use cessation; to follow up with the primary care provider or discharge clinic Late Entry. This medical document was created using an electronic medical record system with computerized dictation system. Although this document has been carefully reviewed, there might still be some phonetic and typographical errors. These areas are purely typographical due to imperfections of the software programs, and do not reflect any compromise in the patient's medical care. Plan discussed with: Patient, Other (Nurse) My Orders Orders - CIELO PAT MD Procedure Category Date Status Time Insert Midline ORDERS 11/01/24 Transmitted 16:38 Date of Service: Nov 02, 2024 Billing Provider: CIELO PAT MD Common Visit Codes: [id number] INP/OBS CARE(MOD) CIELO PAT MD Nov 02, 2024 06:25
[2024-11-02] MEDS: INSULIN LANTUS (GLARGINE) 1 /0.01ml (100units/ml) SC SCH (07:00)
[2024-11-02] MEDS ORDERED: INSU1INJ19 SC (10:21)
[2024-11-02] MEDS ORDERED: HYDR25TA5 PO (10:21)
[2024-11-02] MEDS ORDERED: FLUC100T34 PO (10:21)
--- NOTE | 2024-11-02 10:24 | DVHDS2 ---
Discharge Summary Date of Admission Oct 30, 2024 at 09:43 Date of Discharge: Nov 02, 2024 Admitting Diagnosis Hyperglycemia Labs/Diagnostic Data: Laboratory Results Test 11/02/24 05:36 11/01/24 06:53 10/30/24 10:16 10/30/24 06:05 POC Glucose 189 mg/dl (70-106) White Blood Count 5.5 10^3/uL (4.4-10.8) Red Blood Count 4.66 10^6/uL (4.0-5.20) Hemoglobin 13.5 g/dL (12.2-16.2) Hematocrit 39.4 % (36.0-46.0) Mean Corpuscular Volume 84.6 fL (80.0-100.0) Mean Corpuscular Hemoglobin 28.9 pg (28.0-32.0) Mean Corpuscular Hemoglobin Concent 34.2 g/dL (32.0-36.0) Red Cell Distribution Width 13.6 % (11.8-14.3) Platelet Count 331 10^3/uL (140-450) Mean Platelet Volume 7.1 fL (6.9-10.8) Neutrophils (%) (Auto) 44.6 % (37.0-80.0) Lymphocytes (%) (Auto) 43.6 % (10.0-50.0) Monocytes (%) (Auto) 8.4 % (0.0-12.0) Eosinophils (%) (Auto) 2.8 % (0.0-7.0) Basophils (%) (Auto) 0.6 % (0.0-2.0) Neutrophils # (Auto) 2.5 10 ^3/uL (1.6-8.6) Lymphocytes # (Auto) 2.4 10 ^3/uL (0.4-5.4) Monocytes # (Auto) 0.5 10 ^3/uL (0-1.3) Eosinophils # (Auto) 0.2 10 ^3/uL (0-0.8) Basophils # (Auto) 0 10 ^3/uL (0-0.2) Nucleated Red Blood Cells 0.2 % Sodium Level 136 mmol/L (136-145) Potassium Level 3.7 mmol/L (3.5-5.1) Chloride Level 99 mmol/L (98-107) Carbon Dioxide Level 27 mmol/L (20-31) Anion Gap 10 (5-15) Blood Urea Nitrogen 13 mg/dL (9-23) Creatinine 0.75 mg/dL (0.550-1.02) Glomerular Filtration Rate Calc 103 mL/min (>90) BUN/Creatinine Ratio 17.3 (10.0-20.0) Serum Glucose 238 mg/dL (74-106) Calcium Level 9.7 mg/dL (8.7-10.4) Total Bilirubin 0.6 mg/dL (0.2-1.0) Aspartate Amino Transferase (AST) 19 U/L (13-40) Alanine Aminotransferase (ALT) 34 U/L (7-40) Alkaline Phosphatase 74 U/L (46-116) Total Protein 6.7 g/dL (5.7-8.2) Albumin 4.0 g/dL (3.2-4.8) Influenza Type A Antigen Negative (Negative) Influenza Type B Antigen Negative (Negative) SARS-CoV-2 Antigen (Rapid) Negative (NEGATIVE) Hemoglobin A1c 9.7 % A1C (<5.7) Lactic Acid Level 1.0 mmol/L (0.4-2.0) Test 10/30/24 00:28 10/29/24 23:55 Urine Color Colorless (Yellow) Urine Clarity Clear (Clear) Urine pH 5.5 (5.0-9.0) Urine Specific [place] 1.032 (1.001-1.035) Urine Protein Negative (Negative) Urine Ketones Negative (Negative) Urine Blood Negative /uL (Negative) Urine Nitrite Negative (Negative) Urine Bilirubin Negative (Negative) Urine Urobilinogen Normal mg/dL (Negative) Urine Leukocyte Esterase Negative /uL (Negative) Urine RBC 1 /hpf (0 - 4) Urine Microscopic WBC 2 /HPF (0-5) Urine Squamous Epithelial Cells Few /hpf (<5) Urine Bacteria None seen /hpf (None Seen) Urine Glucose 4+ mg/dL (Normal) Beta-Hydroxybutyric Acid 0.228 mmol/L (< 0.4) Other Laboratory Tests 11/01/24 06:53 Brief Hx & Hospital Course: A 39-year-old female patient; with past medical history of uncontrolled diabetes mellitus and essential hypertension; who presented to the emergency department with hyperglycemia. #Uncontrolled diabetes mellitus with hyperglycemia, hemoglobin A1c of 9.7%; discharged on increased dose of long-acting insulin; prescription sent to pharmacy; to follow up with discharge clinic or primary care provider within one week #Lactic acidosis in the setting of suspected dehydration; resolved; received IV fluids; to follow up with discharge clinic or primary care provider within one week #NOEMÍ; suspected vasomotor nephropathy versus suspected dehydration; avoid nephrotoxic agents; resolved; received IV fluids; to follow up with discharge clinic or primary care provider within one week #Vaginal discharge; suspected fungal infection; pending fungal culture; consulted SPECIMEN TECHNICIAN (evaluated the patient but no written note); received IV fluconazole; discharged on oral fluconazole; to follow up with SPECIMEN TECHNICIAN within two weeks #Essential hypertension; to resume home hydrochlorothiazide upon discharge; to follow up with discharge clinic or primary care provider within one week #Overweight; counseled the patient about the importance of adopting healthy lifestyle with diet and exercise in order to lose weight; to follow up with the primary care provider or discharge clinic within one week #Tobacco use disorder; vapes nicotine; counseled on tobacco use cessation; to follow up with the primary care provider or discharge clinic Late Entry. This medical document was created using an electronic medical record system with computerized dictation system. Although this document has been carefully reviewed, there might still be some phonetic and typographical errors. These areas are purely typographical due to imperfections of the software programs, and do not reflect any compromise in the patient's medical care. Consults/Reason for consult SPECIMEN TECHNICIAN for vaginal discharge Condition at Discharge: Stable Final Diagnosis/Problems List #Uncontrolled diabetes mellitus with hyperglycemia, hemoglobin A1c of 9.7% #Vaginal discharge due to suspected fungal infection Rest of diagnoses as above Discharge Disposition: Home Discharge Instruct/Medications Diet: Consistent carbohydrate, Cardiac 2g Na,low cholest Activity: No Restrictions, As Tolerated Follow Up/Referral: Follow up with discharge clinic within one week or with the primary care provider within one week; follow up with Gynecology within two weeks Medications: Fluconazole; adjusted higher dose of long-acting insulin; hydrochlorothiazide Discharge Statement: "Patient was advised to return to the ER or call 911 if any headaches, dizziness, shortness of breath, chest pain, abdominal pain, bleeding, fevers, or worsening of medical condition. Patient was counseled about treatment plan, medications, possible side effects, patientverbalized understanding. All questions were answered to the best of my ability. This discharge took greater then 30 minutes in planning, reviewing documentation, counseling the patient, and discussing with other team members." ASSESSMENT ASSESSMENT Assessment #Uncontrolled diabetes mellitus with hyperglycemia, hemoglobin A1c of 9.7% #Vaginal discharge due to suspected fungal infection Date of Service: Nov 02, 2024 Billing Provider: CIELO PAT MD Common Visit Codes: [id number]/[id number] DISCH DAY >30min CIELO PAT MD Nov 02, 2024 10:24
[2024-11-02 13:00] VITALS: BP 138/94; PULSE 96; RESP 18; TEMP 98.4; O2SAT 94
== END 2024-11-02 15:10 | disposition home or self-care (01) | DRG 420 ==
LOC: ER 23:05 → OVERFLOW 10-30 09:43 → WEST WING 10-30 20:13
PROVIDERS: ADMIT Internal Medicine; ATTEND Internal Medicine
DX: E11.65 Type 2 diabetes mellitus with hyperglycemia (principal); N17.0 Acute kidney failure with tubular necrosis; E87.20 Acidosis, unspecified; B37.9 Candidiasis, unspecified; B36.8 Other specified superficial mycoses; F17.210 Nicotine dependence, cigarettes, uncomplicated; E86.0 Dehydration; J45.909 Unspecified asthma, uncomplicated; E66.3 Overweight; I10 Essential (primary) hypertension; N89.8 Other specified noninflammatory disorders of vagina; Z79.899 Other long term (current) drug therapy; Z68.29 Body mass index [BMI] 29.0-29.9, adult
CPT/HCPCS: 36415; 71045; 80053; 81001; 82010; 82962; 83036; 83605; 85025; 87081; 87426; 87804; 96361; 96372; 96374; G0378; J1450; J1815

== ENCOUNTER 2025-02-06 23:03 | Emergency (ER) | payer MEDICAID ==
[~2025-02-06] VITALS: Ht 170.2 cm; Wt 81.8 kg
[~2025-02-06 23:03] MED LIST changes: +FLUC100T34 PO; +HYDR25TA5 PO; +INSU1INJ19 SC; -OSEL75CA5 PO
[2025-02-06 23:05] VITALS: BP 171/100; RESP 18; TEMP 98.3; O2SAT 100
[2025-02-06 23:14] VITALS: PULSE 94
--- NOTE | 2025-02-07 01:43 | ED.PDOC ---
HPI Comments 39-year-old female complaining of chest pain started 1 hour ago. For reports history of anxiety. Pulse complaining of headache and dizziness. States chest pain came on unprovoked. Nothing makes it better, nothing makes it worse. States she had a call from PCP has been getting weak stating that she needs started her medications as she has high cholesterol and diabetes. Patient also reports a history of fibromyalgia, taking [place] for. States she took a [place] approximate 30 minutes ago. No prior history of coronary artery disease. Chief Complaint: Chest Pain Time Seen by MD: 23:27 Primary Care Provider: Dr. Dickerson Reviewed Notes: Nurses Notes Allergies: Coded Allergies: NO KNOWN ALLERGIES (Unverified , 10/03/12) Home Meds Active Scripts Hctz (Hydrochlorothiazide) 25 Mg Tab, 12.5 MG PO DAILY for 30 Days, #15 TAB 3 Refills Prov:CIELO PAT MD 11/02/24 Fluconazole (Fluconazole) 100 Mg Tab, 150 MG PO DAILY for 14 Days, #21 TAB Prov:CIELO PAT MD 11/02/24 Insulin Glargine (Basaglar Kwikpen) 100 Unit/Ml Inj, 20 UNIT SC BID for 30 Days, #18 ML 3 Refills Prov:CIELO PAT MD 11/02/24 Information Source: Patient Mode of Arrival: Ambulatory Past Medical History PAST MEDICAL HISTORY: Asthma, DM, High Lipids, HTN WICK AND BASE ASSEMBLER History: No Pertinent WICK AND BASE ASSEMBLER History Family History Family History (Other): Fibromyalgia Social History Smoker: Cigarettes Alcohol: Occasionally Drugs: Denies Drug Use Lives In: Home Constitutional: denies: chills, diaphoresis, fatigue, fever, malaise, sweats, weakness, others EENTM: denies: blurred vision, double vision, ear bleeding, ear discharge, ear drainage, ear pain, ear ringing, eye pain, eye redness, hearing loss, mouth pa in, mouth swelling, nasal discharge, nose bleeding, nose congestion, nose pain, photophobia, tearing, throat pain, throat swelling, voice changes, others Respiratory: denies: cough, hemoptysis, orthopnea, SOB at rest, shortness of breath, SOB with excertion, stridor, wheezing, others Cardiovascular: reports: chest pain; denies: dizzy spells, diaphoresis, Dyspnea on exertion, edema, irregular heart beat, left arm pain, lightheadedness, palpitations, PND, syncope, others Gastrointestinal: denies: abdomen distended, abdominal pain, blood streaked bow els, constipated, diarrhea, dysphagia, difficulty swallowing, hematemesis, melena, nausea, poor appetite, poor fluid intake, rectal bleeding, rectal pain, vomiting, others Genitourinary: denies: abnormal vagina bleeding, burning, dyspareunia, dysuria, flank pain, frequency, hematuria, incontinence, pain, , vagina discharge, urgency, others Neurological: denies: dizziness, fainting, headache, left sided numbness, left sided weakness, numbness, paresthesia, pre-existing deficit, right sided numbness, right sided weakness, seizure, speech problems, tingling, tremors, weakness, others Musculoskeletal: denies: back pain, gout, joint pain, joint swelling, muscle pain, muscle stiffness, neck pain, others Integumetry: denies: bruises, change in color, change in hair/nails, dryness, laceration, lesions, lumps, rash, wounds, others Allergic/Immunocompromised: denies: Difficulty Healing, Frequent Infections, Hives, Itching, others Hematologic/Lymphatic: denies: anemia, blood clots, easy bleeding, easy bruisi ng, swollen glands, others Physical Exam General Appearance: Moderate Distress, Normal HEENT: Normal ENT Inspection, Pharynx Normal, TMs Normal Neck: Full Range of Motion, Non-Tender, Normal, Normal Inspection Respiratory: Chest Non-Tender, Lungs Clear, No Accessory Muscle Use, No Re spiratory Distress, Normal Breath Sounds Cardiovascular: No Edema, No JVD, No Murmur, No Gallop, Normal Peripheral Pulses, Regular Rate/Rhythm Breast Exam: Deferred Gastrointestinal: No Organomegaly, Non Tender, No Pulsatile Mass, Normal Bowel Sounds, Soft Genitalia: Deferred Pelvic: Deferred Rectal: Deferred Extremities: No calf tenderness, Normal capillary refill, Normal inspection, Normal range of motion, Non-tender, No pedal edema Musculoskeletal : Apperance: Normal Neurologic: Alert, motor overhauler II-XII nml as Tested, No Motor Deficits, Normal Affect, Normal Mood, No Sensory Deficits Cerebellar Function: Normal Reflexes: Normal Skin: Dry, Normal Color, Warm Lymphatic: No Adenopathy Was a procedure done? Was a procedure done?: No CP Differential Dx Differential Diagnosis: Angina, Anxiety / Panic Attack X-Ray, Labs, Meds, VS Vital Signs Date Time Temp Pulse Resp B/P (MAP) Pulse Ox O2 Delivery O2 Flow Rate FiO2 02/06/25 23:14 94 02/06/25 23:05 98.3 93 18 171/100 (123) 100 98.3 Lab Test 02/06/25 23:16 02/06/25 23:08 Range/Units POC Glucose 176 H 70-106 mg/dl Troponin I High Sensitivity < 3 L </=34 ng/L X-Ray, Labs, Meds, VS Comment Patient no answer for labs and no answer for chest x-ray, no answer for vital signs, as presumed patient eloped Time of 1ST Reevaluation: 01:42 Reevaluation 1ST: Unchanged Patient Education/Counseling: Diagnosis, Treatment Family Education/Counseling: Diagnosis SEPSIS Sepsis Screen Date sepsis recognized/suspect: Feb 06, 2025 Time Sepsis recognized/suspect: 2304 Recent Procedure: No On Antibiotic Therapy: No Respiratory Rate >20: No Heart Rate >90: No Temp<36 C (96.8 F) or >38.3 C: No SBP <90 or MAP <65 mmHG: No New Acute Mental Status Change: No Is the patient on CPAP, BIPAP,: No Physician Orders Electrocardigram (02/06/25 23:06) Electrocardigram (02/07/25 00:06) Electrocardigram (02/07/25 02:06) Vital Signs Date Time Temp Pulse Resp B/P (MAP) Pulse Ox O2 Delivery O2 Flow Rate FiO2 02/06/25 23:14 94 02/06/25 23:05 98.3 93 18 171/100 (123) 100 98.3 Departure 1 Departure Time of Disposition: 01:43 Impression: Primary Impression: Chest pain Qualified Codes: R07.89 - Other chest pain Disposition: 07 LEFT AWOL/ELOPED Condition: Stable Critical Care Note Critical Care Time?: No Stability Stability form required: No Heart Score Heart Score: Heart Score Response (Comments) Value History Slightly Suspicious 0 EKG Normal 0 Age <45 0 Risk Factors No known risk factors 0 Troponin Normal limit 0 Total 0 MICHAEL NIEVES Feb 07, 2025 01:43
--- NOTE | 2025-02-08 06:40 | ECG ---
[facility] Test Date: 2025-02-06 Test Time: 23:14:16 Pat Name: MERLIN MIX Department: ED Room: Gender: [place]: [place] : 1985 Requested By: MANUEL ADAME Order Number: [id number] Reading MD: Measurements Intervals [place] Rate: 94 P: 58 [place]: 138 QRS: 34 QRSD: 92 T: 46 QT: 380 QTc: 476 Interpretive Statements Sinus rhythm Probable left atrial enlargement Probable left ventricular hypertrophy ST elev, probable normal early repol pattern Please click the below link to view image of tracing.
== END 2025-02-07 01:11 | disposition left against medical advice (07) ==
LOC: ER 23:03
DX: R07.89 Other chest pain (principal); F17.210 Nicotine dependence, cigarettes, uncomplicated; F10.90 Alcohol use, unspecified, uncomplicated; J45.909 Unspecified asthma, uncomplicated; E11.9 Type 2 diabetes mellitus without complications; I10 Essential (primary) hypertension; E78.5 Hyperlipidemia, unspecified; Z79.4 Long term (current) use of insulin; Z79.899 Other long term (current) drug therapy; Y90.9 Presence of alcohol in blood, level not specified
CPT/HCPCS: 36415; 82947; 82962; 84484; 93005